=== PATIENT | male | born 1945 | race Caucasian/White ===

== ENCOUNTER 2018-02-03 21:18 | Observation (INO) | payer MEDICARE ==
[~2018-02-03] VITALS: Ht 188 cm; Wt 124.7 kg
[2018-02-03] MEDS ORDERED: SODIUM CHLORIDE 0.9% 500ML 500 ML IV ONE (21:30)
[2018-02-03] MEDS ORDERED: METOPROLOL TARTRATE INJ 1 MG/ML VIAL IV ONE (21:30)
[2018-02-03 21:53] LABS: BASOPHILS # (AUTO) 0.1 (0.0-0.1); BASOPHILS % 0.7 % (0.0-1.0); EOSINOPHILS # (AUTO) 0.3 (0.0-0.4); EOSINOPHILS % 3.6 % (0.0-6.0); HEMATOCRIT 42.6 % (38.2-49.6); HEMOGLOBIN 14.6 g/dL (14.0-18.0); LYMPHOCYTES % 26.9 % (18.0-39.1); MEAN CORPUSCULAR HEMOGLOBIN 29.7 pg (28-32); MEAN CORPUSCULAR HGB CONC 34.3 g/dL (31-35); MEAN CORPUSCULAR VOLUME 86.8 fL (81-99); MONOCYTES # (AUTO) 0.5 (0.2-0.8); MONOCYTES % 6.9 % (4.4-11.3); NEUTROPHILS # (AUTO) 4.5 (2.1-6.9); NEUTROPHILS % 61.5 % (38.7-80.0); PLATELET COUNT 182 x10e3/uL (140-360); RED BLOOD COUNT 4.91 x10e6/uL (4.3-5.7); RED CELL DISTRIBUTION WIDTH 14.3 % (11.7-14.4)
[2018-02-03 21:57] LABS: INR 0.93; PROTHROMBIN TIME 11.7 seconds (11.9-14.5)
[2018-02-03 21:58] LABS: PARTIAL THROMBOPLASTIN TIME 29.2 seconds (23.8-35.5)
[2018-02-03 22:05] LABS: ALBUMIN 4.3 g/dL (3.5-5.0); ALBUMIN/GLOBULIN RATIO 1.3 (0.8-2.0); ANION GAP 18.3 mmol/L (8-16); CALCIUM 10.3 mg/dL (8.4-10.2); CREATININE, SERUM 1.36 mg/dL (0.72-1.25); POTASSIUM 4.3 mmol/L (3.5-5.1)
[2018-02-03 22:11] LABS: CREATINE KINASE MB 3.3 ng/mL (0-5.0)
[2018-02-03] MEDS ORDERED: METFORMIN HCL1000 MG PO (22:49)
[2018-02-03] MEDS ORDERED: GLIMEPIRIDE2 MG PO (22:49)
[2018-02-03] MEDS ORDERED: NOVOLIN R100 UNIT/1 SC ×2 (22:50)
[2018-02-03] MEDS ORDERED: ATENOLOL50 MG PO (22:51)
[2018-02-03] MEDS ORDERED: LOSARTAN POTAS100 MG PO (22:51)
[2018-02-03] MEDS ORDERED: DOXAZOSIN MESYLA2 MG PO (22:52)
[2018-02-03] MEDS ORDERED: FLUOXETINE HCL20 M1 PO (22:52)
[2018-02-03] MEDS ORDERED: ALLOPURINOL300 MG PO (22:52)
[2018-02-03] MEDS ORDERED: SIMVASTATIN40 MG PO (22:52)
--- NOTE | 2018-02-03 22:52 | Diagnostic Imaging Report ---
EXAMINATION: CHEST SINGLE (PORTABLE) INDICATION: Chest pain. COMPARISON: None FINDINGS: TUBES and LINES: None. LUNGS: Lungs are well inflated. Lungs are clear. There is no evidence of pneumonia or pulmonary edema. PLEURA: No pleural effusion or pneumothorax. HEART AND MEDIASTINUM: The cardiomediastinal silhouette is unremarkable. BONES AND SOFT TISSUES: No acute osseous lesion. Soft tissues are unremarkable. UPPER ABDOMEN: No free air under the diaphragm. IMPRESSION: No acute thoracic abnormality. Signed by: Dr. Thomas Deleon M.D. on 02/03/2018 10:49 PM
[2018-02-03] MEDS ORDERED: ONDANSETRON HCL INJ 2 MG/ML VIAL IV PRN (23:15)
[2018-02-03] MEDS ORDERED: DEXTROSE 50% SYRINGE 50 ML IV PRN (23:15)
[2018-02-03] MEDS ORDERED: FAMOTIDINE 20 MG/2 ML VIAL IV SCH (23:15)
[2018-02-03] MEDS ORDERED: MORPHINE SULFATE 2 MG/ML SYR IV PRN (23:15)
[2018-02-03] MEDS ORDERED: SODIUM CHLORIDE FLUSH 10 ML SYR INJ PRN (23:15)
[2018-02-04] VITALS (17 sets, daily range): BP systolic 130–153; BP diastolic 60–93
[2018-02-04 05:53] LABS: CHOL/HDL RATIO 3.8 (3.9-4.7)
[2018-02-04 06:03] LABS: CREATINE KINASE MB 5.4 ng/mL (0-5.0)
[2018-02-04] MEDS ORDERED: FEXOFENADINE H180 MG PO (06:29)
[2018-02-04] MEDS ORDERED: NORCO 5-325 TA1 EACH PO (06:29)
[2018-02-04] MEDS ORDERED: ASPIR 8181 MG PO (06:29)
[2018-02-04] MEDS ORDERED: FUROSEMIDE40 MG PO (06:29)
[2018-02-04] MEDS ORDERED: RANITIDINE HCL150 MG PO (06:29)
[2018-02-04] MEDS ORDERED: ACULAR5 ML OD (06:29)
[2018-02-04] MEDS ORDERED: FUROSEMIDE 40 MG TAB PO SCH ×2 (06:30→18:51)
[2018-02-04] MEDS ORDERED: HYDROCODONE/APAP 5MG-325MG TAB PO PRN ×2 (06:30→19:00)
[2018-02-04] MEDS: INSULIN REGULAR, HUMAN 100 UNIT/1 ML 3ML VIAL SQ SCH ×4 (07:16→21:00)
[2018-02-04] MEDS ORDERED: SODIUM CHLORIDE 0.9% 1000ML 1,000 ML IV SCH ×3 (08:52→19:00)
[2018-02-04] MEDS ORDERED: ATENOLOL 50 MG TAB PO SCH (09:00)
[2018-02-04] MEDS ORDERED: FAMOTIDINE 20 MG TAB PO SCH (09:00)
[2018-02-04] MEDS ORDERED: ALLOPURINOL 300 MG TAB PO SCH (09:00)
[2018-02-04] MEDS ORDERED: KETOROLAC TROMETHAMINE 0.5% OP SOLN 3 ML BTL OD SCH (09:00)
[2018-02-04] MEDS ORDERED: NON-FORMULARY MEDICATION (Ranitidine Hcl 150 MG) PO SCH (09:00)
[2018-02-04] MEDS ORDERED: ASPIRIN 81 MG CHEW TAB PO SCH (09:00)
[2018-02-04] MEDS ORDERED: CLOPIDOGREL BISULFATE 75 MG TAB PO ONE (09:00)
[2018-02-04] MEDS ORDERED: LOSARTAN POTASSIUM 100 MG TAB PO SCH (09:00)
[2018-02-04] MEDS ORDERED: ASPIRIN 81 MG ENTERIC COATED PO SCH (09:00)
[2018-02-04] MEDS ORDERED: FLUOXETINE HCL 20 MG CAP PO SCH (09:00)
[2018-02-04] MEDS ORDERED: ASPIRIN 325 MG TAB PO ONE (09:00)
[2018-02-04] MEDS: LORATADINE 10 MG TAB PO SCH (09:02)
--- NOTE | 2018-02-04 09:57 | Consultation ---
DATE OF CONSULTATION: February 04, 2018 CARDIOLOGY CONSULTATION REASON FOR CONSULTATION: Chest pain. HISTORY OF PRESENT ILLNESS: Mr. Brock is a 72-year-old gentleman with past medical history of hypertension, type-2 diabetes diagnosed 15 years ago, aortic stenosis under observation, BPH as well as gout, who also appears to have symptoms of diastolic heart failure. He presented to this institution with an episode of severe substernal pressure, dull ache, radiating across his chest associated with nausea, diaphoresis, and difficulty breathing. The patient had also near syncope with the episode, prompting him to come to the emergency room. Yesterday, he was in his usual state of health. He worked in the yard earlier that day. However, in the nighttime, he developed that pain as noted above. Overall, he reports taking extra 50 mg of atenolol and coming to the emergency room for further care and management. He denies ever having any symptoms like this before. He utilizes 2 pillows. No PND. Denies any syncope. He reports he has had stress tests in the past, but the last one was well over a year ago. His last echocardiogram was also well over a year ago. In the emergency room, serial cardiac biomarkers were checked. Troponin went from a baseline of 0.014 to 0.331. EKG reveals normal sinus rhythm and slight ST depressions diffusely. Cardiology consultation is obtained. PAST MEDICAL HISTORY 1. Hypertension, essential. 2. Type-2 diabetes diagnosed 15 years ago. 3. Hypercholesterolemia. 4. Aortic stenosis under observation. 5. BPH. 6. Gout. PAST SURGICAL HISTORY: Denies. FAMILY HISTORY: Mother at age of 79 with heart disease. Father at the age of 80 with heart disease. 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 Denies any alcohol or illicit drug use. Denies any smoking history. ALLERGIES: NO KNOWN DRUG ALLERGIES. HOME MEDICATIONS: Include: 1. Atenolol 50 mg b.i.d. 2. Losartan 100 mg daily. 3. Doxazosin 2 mg nightly. 4. Prozac 20 mg daily. 5. Allopurinol 300 mg daily. 6. Zocor 40 mg daily. 7. Metformin 1,000 mg b.i.d. 8. Glimepiride 4 mg b.i.d. 9. Novolin 20 units subcutaneous q.a.m. and 60 units subcutaneous nightly. REVIEW OF SYSTEMS GENERAL: Positive for fatigue and malaise. Denies any fever or chills. HEENT: Has occasional headache. No visual complaints, sore throat or stuffy nose. RESPIRATORY: Positive for shortness of breath with the chest pain episode. No cough. CARDIOVASCULAR: As per HPI. GI: Denies any abdominal pain. Positive for nausea with the chest pain. No vomiting, bright red blood per rectum, melena or hematemesis. : Does have urinary frequency and BPH-type symptoms. MUSCULOSKELETAL: Has some chronic lower back pains and knee pains from time to time. He does have lower extremity swelling. HEM: No easy bruising or bleeding. ID: No known infectious history. NEUROLOGIC: Denies any focal weakness, numbness, tingling, seizures, headache, history of TIA or stroke. OTHER: The remainder of the review of systems negative unless otherwise mentioned. PHYSICAL EXAMINATION VITALS: Height 74 inches, weight 275 pounds, BMI 35.3. Temperature 98.5, pulse 64, respiratory rate 16, blood pressure 142/61, O2 sat 97% on 2 L nasal cannula. GENERAL: This is a well-nourished, obese gentleman who is currently in no apparent distress. HEENT: Pupils are equal, round and reactive to light. The extraocular movements are intact. Oropharynx is clear. NECK: No elevation of jugular venous pulsation. Faint bilateral carotid bruits. CARDIOVASCULAR: Regular rate and rhythm. Normal S1 and S2 with ectopy. Harsh 3/6 to 4/6 systolic ejection murmur at the right upper sternal border. LUNGS: Diminished bibasilar breath sounds with some slight crackles. ABDOMEN: Soft. Nontender. Obese. Normoactive bowel sounds. BACK: No costovertebral angle tenderness. EXTREMITIES: Warm with 2+ bilateral radial pulses with normal Jovani and Barbeau tests. There are 1 to 2+ bilateral femoral pulses and 1+ pedal pulse with 1+ edema to the mid shins. NEUROLOGIC: Cranial nerves II through XII are intact. Strength is 5/5 and grossly nonfocal. PSYCH: Normal fluent speech, appropriate affect, no anxiety or delusions. LABS: White count 7.2, hemoglobin 14.6, hematocrit 42.6, platelets 182. Sodium 141, potassium 4.3, chloride 101, bicarb 26, BUN 22, creatinine 1.36, glucose 231. INR is 0.93. AST 33, ALT 56, alk phos 71, total bili 0.4, total protein 7.5, albumin 4.3. BNP is 155. Troponin went from 0.014 to 0.331, which is positive. Cholesterol shows total cholesterol 119, LDL 65, HDL 31. Chest x-ray is reported no acute abnormality. EKG reveals sinus rhythm, 1st-degree AV block with ectopy with PACs and nonspecific borderline ST depressions diffusely. DIAGNOSES 1. Eru-PC-gcltdcgnr myocardial infarction with positive cardiac biomarkers with typical [place] [employer] IV angina symptoms. 2. Aortic stenosis approaching severe by clinical exam. 3. Bilateral carotid bruits. 4. Hypertension. 5. Type-2 diabetes with complications. 6. Hypercholesterolemia. PLAN/RECOMMENDATIONS 1. Go ahead and give him 325 aspirin and Plavix 600 mg load. 2. In light of unstable symptoms, we are arranging urgent cardiac catheterization to figure out what his culprit artery will be. 3. Recommend to continue beta phong, statin, etc. 4. Gentle IV fluid hydration to protect renal function from the contrast load. 5. Further plan/recommendations to follow urgent cardiac catheterization. Job#: [id number] LLOYD CASTRO
[2018-02-04] MEDS ORDERED: HEPARIN SOD (PORCINE) 1000 UNIT/ML 30ML ONE (10:12)
[2018-02-04] MEDS ORDERED: HEPARIN SOD/SOD CHLORIDE 2,000 ML ONE (10:13)
[2018-02-04] MEDS ORDERED: NITROGLYCERIN/D5W 200 MCG/ML 250 ML ONE (10:13)
[2018-02-04] MEDS ORDERED: IOPAMIDOL 370 MG/ML 200 ML INFUS..BTL INJ ONE (10:13)
[2018-02-04] MEDS ORDERED: LIDOCAINE HCL 2% LOCAL 20 ML VIAL ONE (10:13)
[2018-02-04] MEDS ORDERED: VERAPAMIL HCL 2.5 MG/ML 2 ML VIAL ONE (10:13)
[2018-02-04] MEDS ORDERED: MIDAZOLAM HCL 2 MG/2 ML VIAL ONE ×2 (10:13→11:09)
[2018-02-04] MEDS ORDERED: SODIUM CHLORIDE 0.9% 1000ML 1,000 ML ONE (10:13)
[2018-02-04] MEDS ORDERED: FENTANYL CITRATE/PF 100MCG/2 ML INJ ONE (10:14)
[2018-02-04] MEDS ORDERED: BIVALIRUDIN 250 MG/VIAL IV ONE (11:06)
[2018-02-04] MEDS ORDERED: SODIUM CHLORIDE 0.9% 50ML 50 ML ONE (11:06)
[2018-02-04] MEDS ORDERED: CLOPIDOGREL BISULFATE 75 MG TAB ONE (11:09)
[2018-02-04] MEDS ORDERED: ASPIRIN 325 MG TAB ONE (11:11)
[2018-02-04] MEDS ORDERED: ONDANSETRON HCL INJ 2 MG/ML VIAL IV PRN ×2 (12:00→19:00)
--- NOTE | 2018-02-04 15:16 | Operative Report ---
DATE OF PROCEDURE: February 04, 2018 PROCEDURES PERFORMED 1. Left heart cardiac catheterization and coronary angiography. 2. Percutaneous coronary intervention with drug-eluting stent placement to the mid left anterior descending. INDICATIONS FOR PROCEDURE: This is a 72-year-old gentleman with past medical history of hypertension, type 2 diabetes for about 15 years, hypercholesterolemia, aortic stenosis under surveillance, who presents to this institution with severe substernal chest pressure tightness sensation and elevated troponin going to the 0.3 range most consistent with a diagnosis of [id number] myocardial infarction. DESCRIPTION OF PROCEDURE: After risks, benefits, pros and cons of the procedure were explained, the patient agreed to proceed. The patient was brought to the cardiac catheterization laboratory where the right wrist was prepped and draped in the usual sterile fashion. Preprocedure Jovani's and Barbeau test were noted to be normal indicating complete pulmonary arch. One percent lidocaine solution was used to numb the right wrist region and access to the right radial artery was obtained. The long 5-Syrian Terumo Glidesheath was placed. Intra-arterial verapamil 2.5 mg and nitroglycerin 300 mcg were given through the side arm of the sheath, and 5000 units of intravenous heparin was given for systemic anticoagulation. Selective coronary angiography of the [place]-apache left and right coronaries were performed with Boone 4.0 diagnostic 5-Syrian catheter. Left ventriculography was not done on account of known aortic stenosis. At that point in time, we noted a severe mid to distal LAD lesion at 85% stenosed and the distal LAD was noted to be very small and not really a graftable vessel. We decided to proceed with intervention. The 5-Syrian long Terumo Glidesheath was exchanged for a 6-Syrian Terumo slender sheath. IV Angiomax bolus was given for systemic anticoagulation and patient was loaded with 325 mg aspirin as well as 600 mg of Plavix. We took a 6-Syrian XB3.5 guiding catheter with side holes and selected the left main coronary ostia. Utilizing a 180 cm [employer] Flex guidewire, we were able to successfully cross the lesion and the wire was placed preferentially to the distal diagonal branch for body support. We initially went with a Synergy 2.5 x 16 mm drug-eluting stent; however this was unable to cross the lesion. At that point in time, we took a 6-Syrian GuideLiner guide extension catheter and we took a Resolute Eyal 2.25 x 15 mm drug-eluting stent and we are able to advance into the lesion. The stent was deployed up to 12 atmospheres of pressure for 30 seconds. Final angiography revealed zero percent residual stenosis and KAREN-III flow and no complications. At that point in time, we decided to conclude the case. The GuideLiner guide extension wire was removed and final angiogram revealed no guide issues and no complications. The guiding catheter was removed with a standard 0.035 J wire and a large Terumo TR band was successfully deployed utilizing patent hemostasis technique and a total of 15 mL of air was placed. COMPLICATIONS: None. ESTIMATED BLOOD LOSS: Minimal. FINDINGS 1. Left main is angiographically normal and gives rise to an LAD and circumflex branch. 2. The LAD is tortuous, has diffuse mild disease; however in the mid to distal LAD just before last sizeable diagonal branch, there is an 80% focal stenosis. The distal most diagonal branch is moderate in caliber and has a 40% proximal stenosis and the distal most apical LAD after that point of time is very small and no more than 1.5 mm vessel and not really suitable for grafting. 3. The left circumflex artery has 40% proximal stenosis gives rise to an anterolateral marginal branch. There is mild diffuse disease and terminates into a moderate caliber midmarginal branch with mild diffuse disease. 4. RCA is dominant. It gives rise to a large right PDA and moderate caliber bifurcating right PLV branch. There is diffuse 60% stenosis in the distal right coronary artery. INTERVENTION SUMMARY: Successful treatment of the mid to distal LAD stenosis which preprocedure was 80% and KAREN 3 flow with implantation of a Resolute [place] 2.25 x 15 mm drug-eluting stent deployed up to 12 atmospheres of pressure resulting in zero percent residual stenosis KAREN 3 flow, unknown complications. PLAN AND RECOMMENDATIONS 1. Aspirin and Plavix therapy. 2. Statin therapy. 3. Aggressive risk factor modification with medical therapy. 4. Removal of TR band in approximately one hour worth of time. 5. Further plan and recommendations to follow. Job#: [id number] KEN
[2018-02-04] MEDS ORDERED: SODIUM CHLORIDE FLUSH 10 ML SYR INJ PRN (19:00)
[2018-02-04] MEDS ORDERED: DEXTROSE 50% SYRINGE 50 ML IV PRN (19:00)
[2018-02-04] MEDS ORDERED: MORPHINE SULFATE 2 MG/ML SYR IV PRN (19:00)
[2018-02-04] MEDS: SODIUM CHLORIDE 0.9% 1000ML 1,000 ML IV SCH (19:30)
--- NOTE | 2018-02-04 19:48 | History and Physical ---
PRIMARY CARE PHYSICIAN: Dr. Manny Duenas with [facility]. CHIEF COMPLAINT: Chest pain. HISTORY OF PRESENT ILLNESS: This is a 72-year-old gentleman with what sounds like aortic stenosis, hypertension and diabetes. He came in with severe substernal chest pressure associated with diaphoresis and shortness of breath. The patient also had near syncopal episode. The patient was checking his blood pressure at home and was tachycardiac, therefore, he took an extra 50 mg of Atenolol. The patient also noticed his heart was skipping a beat. The patient had a stress test before, but it was well over a year ago. Subsequently, his second troponin went up to 0.3, which was abnormal and he was urgently taken to the carpenter/labor by Dr. Chan. PAST MEDICAL HISTORY: 1. Hypertension. 2. Type 2 diabetes. 3. Dyslipidemia. 4. Aortic stenosis. 5. Benign prostatic hypertrophy. 6. Gout. PAST SURGICAL HISTORY: None. FAMILY HISTORY: Significant for heart disease. SOCIAL HISTORY: No smoking history. ALLERGIES: NONE. MEDICATIONS: Please see medication reconciliation form. REVIEW OF SYSTEMS: Ten systems were reviewed and negative other than what is stated in HPI. PHYSICAL EXAMINATION VITAL SIGNS: Temperature 98.5, pulse 61, blood pressure 130/60, respiratory rate 16. GENERAL: In no acute distress. HEENT: Anicteric. Oropharynx is clear. NECK: Supple. LUNGS: Clear. HEART: Regular rate and rhythm. Normal S1 and S2. systolic murmur. ABDOMEN: Soft, nondistended, nontender. Normoactive bowel sounds. : Deferred. MUSCULOSKELETAL: Painless range of motion. NEUROLOGIC: Alert and oriented x3. Cranial nerves II-XII grossly intact. SKIN: No rash. PSYCHIATRIC: No hallucinations. LABORATORY DATA: White count 7, hemoglobin 14, platelet count 182,000. PT and PTT normal. Sodium 141, potassium 4.3, chloride 101, bicarb 26, BUN 22, creatinine 1.36, glucose 231. Chest x-ray did not show any acute disease. ASSESSMENT AND PLAN 1. Non-ST elevation myocardial infarction, status post mid to distal drug eluting stent placement. Will continue aspirin, Plavix, Atenolol and Zocor. Will monitor overnight. If stable, the patient should be able to go home tomorrow. 2. Diabetes. Will start him on sliding scale. 3. Possible stage 3 chronic kidney disease due to diabetes. Will gently hydrate him. Will repeat another creatinine in the morning. 4. GI, DVT prophylaxis. No chemical due to recent procedure. Job#: [id number] GH cc:MANNY DUENAS MD
[2018-02-04] MEDS ORDERED: DOXAZOSIN MESYLATE 2 MG TAB PO SCH ×2 (21:00)
[2018-02-04] MEDS: KETOROLAC TROMETHAMINE 0.5% OP SOLN 3 ML BTL OD SCH (21:00)
[2018-02-04] MEDS ORDERED: SIMVASTATIN 40 MG TAB PO SCH ×2 (21:00)
[2018-02-04 21:08] LABS: CREATINE KINASE MB 3.3 ng/mL (0-5.0)
[2018-02-05] VITALS: BP 177/84
[2018-02-05] MEDS: DIPHENHYDRAMINE HCL 25 MG CAP PO PRN ×2 (02:03→12:00)
[2018-02-05 04:00] VITALS: BP 158/68
[2018-02-05 05:18] LABS: BASOPHILS % 0.7 % (0.0-1.0); EOSINOPHILS # (AUTO) 0.3 (0.0-0.4); EOSINOPHILS % 4.9 % (0.0-6.0); HEMATOCRIT 37.1 % (38.2-49.6); HEMOGLOBIN 12.6 g/dL (14.0-18.0); LYMPHOCYTES # (AUTO) 1.6 (1.0-3.2); LYMPHOCYTES % 26.5 % (18.0-39.1); MEAN CORPUSCULAR HEMOGLOBIN 29.4 pg (28-32); MEAN CORPUSCULAR VOLUME 86.5 fL (81-99); MONOCYTES # (AUTO) 0.4 (0.2-0.8); MONOCYTES % 6.9 % (4.4-11.3); NEUTROPHILS # (AUTO) 3.7 (2.1-6.9); NEUTROPHILS % 60.7 % (38.7-80.0); PLATELET COUNT 155 x10e3/uL (140-360); RED BLOOD COUNT 4.29 x10e6/uL (4.3-5.7); RED CELL DISTRIBUTION WIDTH 14.4 % (11.7-14.4)
[2018-02-05 05:42] LABS: ALANINE AMINOTRANSFERASE 45 IU/L (0-55); ALBUMIN/GLOBULIN RATIO 1.5 (0.8-2.0); ALKALINE PHOSPHATASE 44 IU/L (40-150); ANION GAP 11.9 mmol/L (8-16); BLOOD UREA NITROGEN 18 mg/dL (7-26); BUN/CREATININE RATIO 17 (6-25); CALCIUM 8.8 mg/dL (8.4-10.2); CARBON DIOXIDE 25 mmol/L (22-29); CHLORIDE 106 mmol/L (98-107); CREATININE, SERUM 1.03 mg/dL (0.72-1.25); EST GLOMERULAR FILTRATION RATE > 60 ML/MIN (60-); GLUCOSE 127 mg/dL (74-118); POTASSIUM 3.9 mmol/L (3.5-5.1); SODIUM 139 mmol/L (136-145)
[2018-02-05 05:43] LABS: ALBUMIN 3.3 g/dL (3.5-5.0)
[2018-02-05] MEDS: INSULIN REGULAR, HUMAN 100 UNIT/1 ML 3ML VIAL SQ SCH (07:30)
[2018-02-05 08:00] VITALS: BP 149/80
[2018-02-05] MEDS: LORATADINE 10 MG TAB PO SCH (08:54)
[2018-02-05] MEDS: KETOROLAC TROMETHAMINE 0.5% OP SOLN 3 ML BTL OD SCH (08:54)
[2018-02-05] MEDS: SODIUM CHLORIDE 0.9% 1000ML 1,000 ML IV SCH (08:54)
[2018-02-05] MEDS ORDERED: CLOPIDOGREL BISULFATE 75 MG TAB PO SCH (09:00)
[2018-02-05] MEDS ORDERED: FLUOXETINE HCL 20 MG CAP PO SCH (09:00)
[2018-02-05] MEDS ORDERED: FAMOTIDINE 20 MG TAB PO SCH (09:00)
[2018-02-05] MEDS ORDERED: ATENOLOL 50 MG TAB PO SCH (09:00)
[2018-02-05] MEDS ORDERED: LOSARTAN POTASSIUM 100 MG TAB PO SCH (09:00)
[2018-02-05] MEDS ORDERED: ALLOPURINOL 300 MG TAB PO SCH (09:00)
[2018-02-05] MEDS ORDERED: ASPIRIN 81 MG ENTERIC COATED PO SCH (09:00)
[2018-02-05] MEDS ORDERED: ASPIRIN 325 MG TAB PO SCH (09:00)
--- NOTE | 2018-02-05 11:09 | Discharge Summary ---
PRIMARY CARE PHYSICIAN: Dr. Manny Duenas. FINAL DIAGNOSIS: Non-ST elevation myocardial infarction. SECONDARY DIAGNOSES 1. Aortic stenosis. 2. Hypertension. 3. Diabetes. CONSULTANTS: Dr. Chan, cardiology. PROCEDURE/STUDIES PERFORMED: 1. Echocardiogram, which showed EF of 35%. 2. Drug eluting stent placement of the mid to distal LAD. HISTORY: Per H\T\P. HOSPITAL COURSE: The patient was admitted. His second troponin was 0.3. Therefore, the patient was urgently taken to the filling station laborer where an 80% lesion was found. A drug eluting stent was placed. The patient will be going home on Plavix in addition to his aspirin. Of note, his echocardiogram did show an EF of 35%. The patient has an appointment already in a couple of days with his Eun heading saw operator at a routine followup for his aortic stenosis. The patient was seen and examined today. It took 32 minutes total to discharge this patient. CONDITION ON DISCHARGE: Stable. DISCHARGE MEDICATIONS: Please see medication reconciliation form. VICTOR HUGO JOAQUIN M.D. Job#: [id number] GH cc:MANNY DUENAS MD
[2018-02-05] MEDS ORDERED: PLAVIX75 MG PO (11:37)
== END 2018-02-05 12:18 | disposition home or self-care (01) ==
LOC: ER 21:18 → CATH LAB 22:00 → ERHOLD 23:06 → UNDOADMOB 23:06 → IMCU 23:08 → ERHOLD 02-04 01:43 → CATH LAB 02-04 10:29 → IMCU 02-04 18:02 → UNDOADMOB 02-04 18:02 → UNDODISOB 02-05 12:18
PROVIDERS: ADMIT Internal Medicine Cardiovascular Disease; ATTEND Internal Medicine Cardiovascular Disease
DX: I21.4 Non-ST elevation (NSTEMI) myocardial infarction (principal); I25.110 Atherosclerotic heart disease of native coronary artery with unstable angina pectoris; I34.0 Nonrheumatic mitral (valve) insufficiency; I35.0 Nonrheumatic aortic (valve) stenosis; I07.1 Rheumatic tricuspid insufficiency; I49.1 Atrial premature depolarization; I10 Essential (primary) hypertension; E78.5 Hyperlipidemia, unspecified; N40.0 Benign prostatic hyperplasia without lower urinary tract symptoms; E11.8 Type 2 diabetes mellitus with unspecified complications; M10.9 Gout, unspecified; E78.00 Pure hypercholesterolemia, unspecified; E66.9 Obesity, unspecified; Z79.4 Long term (current) use of insulin; Z79.02 Long term (current) use of antithrombotics/antiplatelets; Z68.38 Body mass index [BMI] 38.0-38.9, adult; Z82.49 Family history of ischemic heart disease and other diseases of the circulatory system
CPT/HCPCS: 93454; C9600; 36415; 71045; 80053; 80061; 82550; 82553; 82948; 83735; 83880; 84484; 85025; 85610; 85730; 92928; 93005; 93306; 93880; 94660; 96360; 96361; 96372; 97139; 99284; C1874; G0378; J0583; J1644; J2001; J2250; J7030; J7040; Q9967

== ENCOUNTER 2018-02-08 02:06 | Observation (INO) | payer MEDICARE ==
[~2018-02-08] VITALS: Ht 188 cm; Wt 124.7 kg
[~2018-02-08 02:06] MED LIST: ACULAR5 ML OD; ALLOPURINOL300 MG PO; ASPIR 8181 MG PO; ATENOLOL50 MG PO; DOXAZOSIN MESYLA2 MG PO; FEXOFENADINE H180 MG PO; FLUOXETINE HCL20 M1 PO; FUROSEMIDE40 MG PO; GLIMEPIRIDE2 MG PO; LOSARTAN POTAS100 MG PO; METFORMIN HCL1000 MG PO; NORCO 5-325 TA1 EACH PO; NOVOLIN R100 UNIT/1 SC; PLAVIX75 MG PO; RANITIDINE HCL150 MG PO; SIMVASTATIN40 MG PO
[2018-02-08] MEDS ORDERED: HYDRALAZINE HCL 20 MG/ML VIAL IV STA (02:20)
[2018-02-08 02:50] LABS: BASOPHILS % 0.6 % (0.0-1.0); EOSINOPHILS # (AUTO) 0.5 (0.0-0.4); EOSINOPHILS % 6.7 % (0.0-6.0); HEMATOCRIT 39.4 % (38.2-49.6); HEMOGLOBIN 13.6 g/dL (14.0-18.0); LYMPHOCYTES # (AUTO) 1.5 (1.0-3.2); LYMPHOCYTES % 22.5 % (18.0-39.1); MEAN CORPUSCULAR HEMOGLOBIN 29.5 pg (28-32); MEAN CORPUSCULAR HGB CONC 34.5 g/dL (31-35); MEAN CORPUSCULAR VOLUME 85.5 fL (81-99); MONOCYTES # (AUTO) 0.5 (0.2-0.8); MONOCYTES % 7.2 % (4.4-11.3); NEUTROPHILS # (AUTO) 4.2 (2.1-6.9); NEUTROPHILS % 62.7 % (38.7-80.0); PLATELET COUNT 159 x10e3/uL (140-360); RED BLOOD COUNT 4.61 x10e6/uL (4.3-5.7); RED CELL DISTRIBUTION WIDTH 14.2 % (11.7-14.4)
[2018-02-08 03:12] LABS: ALBUMIN 3.9 g/dL (3.5-5.0); ALBUMIN/GLOBULIN RATIO 1.4 (0.8-2.0); ANION GAP 15.1 mmol/L (8-16); CALCIUM 9.6 mg/dL (8.4-10.2); CREATININE, SERUM 1.43 mg/dL (0.72-1.25); MAGNESIUM 1.9 MG/DL (1.3-2.1); POTASSIUM 4.1 mmol/L (3.5-5.1)
[2018-02-08 03:13] LABS: INR 1.04; PARTIAL THROMBOPLASTIN TIME 27.9 seconds (23.8-35.5); PROTHROMBIN TIME 12.8 seconds (11.9-14.5)
[2018-02-08 03:33] LABS: CREATINE KINASE MB 2.2 ng/mL (0-5.0)
--- NOTE | 2018-02-08 03:36 | Diagnostic Imaging Report ---
CHEST SINGLE (PORTABLE), 02/08/2018 2:20 AM Technique: CHEST SINGLE (PORTABLE) Comparison: 02/03/2018 Clinical history: Palpitations Findings: Limited by portable technique. Stable cardiomediastinal silhouette. No consolidation or edema. No significant effusion. No pneumothorax. Impression: 1. Lines/Tubes: None 2. No acute abnormality. Signed by: Dr Tanya Smallwood MD on 02/08/2018 3:32 AM
[2018-02-08] MEDS ORDERED: DEXTROSE 50% SYRINGE 50 ML IV PRN (04:30)
[2018-02-08] MEDS ORDERED: HYDRALAZINE HCL 20 MG/ML VIAL IV PRN (04:30)
[2018-02-08 04:47] LABS: CLARITY,URINE CLEAR (CLEAR); COLOR,URINE YELLOW (YELLOW)
[2018-02-08 04:48] LABS: BILIRUBIN,URINE NEGATIVE (NEGATIVE); KETONES,URINE NEGATIVE (NEGATIVE); LEUKOCYTE ESTERASE ,URINE NEGATIVE (NEGATIVE); NITRITE,URINE NEGATIVE (NEGATIVE); PROTEIN,URINE DIPSTICK 2+ (NEGATIVE); URINE UROBILINOGEN 0.2 mg/dL (0.2 - 1)
[2018-02-08 04:57] LABS: BACTERIA,URINE RARE /HPF; EPITHELIAL CELLS,URINE RARE /LPF; RBC,URINE 0-5 /HPF (0-5)
[2018-02-08] MEDS ORDERED: ENALAPRILAT IV INJ 1.25 MG/ML VIAL IV STA (05:04)
[2018-02-08 06:45] VITALS: BP 174/85
[2018-02-08 07:30] VITALS: BP 169/77
[2018-02-08] MEDS ORDERED: INSULIN REGULAR, HUMAN 100 UNIT/1 ML 3ML VIAL SQ SCH (07:30)
[2018-02-08] MEDS ORDERED: CLOPIDOGREL BISULFATE 75 MG TAB PO SCH (09:00)
[2018-02-08] MEDS ORDERED: ASPIRIN 81 MG ENTERIC COATED PO SCH (09:00)
[2018-02-08] MEDS ORDERED: CLONIDINE HCL 0.1 MG TAB PO PRN (10:45)
[2018-02-08] MEDS ORDERED: DOXAZOSIN MESYLATE 2 MG TAB PO SCH (11:00)
[2018-02-08] MEDS ORDERED: LOSARTAN POTASSIUM 100 MG TAB PO SCH (11:00)
[2018-02-08] MEDS ORDERED: ATENOLOL 50 MG TAB PO SCH (11:00)
[2018-02-08] MEDS ORDERED: HYDROCHLOROTHIAZIDE 25 MG TAB PO SCH (11:00)
[2018-02-08 11:36] VITALS: BP 190/90
[2018-02-08 11:53] LABS: CREATINE KINASE MB 2.3 ng/mL (0-5.0)
--- NOTE | 2018-02-08 12:54 | Consultation ---
DATE OF CONSULTATION: REASON FOR CONSULTATION: Hypertension. HPI: This is a 72-year-old male with a recent non-STEMI on February 04 with PCI to LAD with a Resolute stent, drug-eluting; hypertension; diabetes; hypercholesterolemia; severe aortic stenosis; BPH; gout and obesity. Patient as mentioned had a recent non-STEMI on February 04, had a PCI to LAD with good results, progressed nicely, went home; however, patient reports that for the past couple of days, he has been not watching his salt intake and yesterday, he noticed his blood pressure being high. In fact, last night, he reports blood pressure being 220/105. Patient does report taking all his heart medications, not skipping doses; however, he does state that he has been increasing his salt intake. Therefore, patient came to the ER because of blood pressure being elevated and also did notice that he felt his heart skip every so often. Tele was reviewed and he does have intermittent PACs. Patient denies any chest pains, any lightheadedness, any dizziness, any syncope. Patient actually in fact states that he was going to go see his doctor, Dr. Jay, his radial arm saw operator, this , regarding his severe aortic stenosis. Patient was seen in room, in no acute distress. He is adamant that he wants to leave and does not want to be here and wants to follow up with his primary radial arm saw operator, Dr. Jay. PAST MEDICAL HISTORY 1. CAD, status post PCI to LAD with a Resolute stent, drug-eluting on February 04, 2018. 2. Hypertension. 3. Severe aortic stenosis. 4. Diabetes. 5. Hypercholesterolemia. 6. BPH. 7. Gout. 8. Obesity. PAST SURGICAL HISTORY: Recent PCI on February 04, 2018. FAMILY HISTORY: Mother at the age of 79, apparently with heart disease. Father at age of 80, also with apparently heart disease. SOCIAL HISTORY: He is . 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 He denies any alcohol use, any tobacco use, or any drug use. ALLERGIES: NO KNOWN ALLERGIES. HOME MEDICATIONS: Include; 1. Allopurinol 300 mg once a day. 2. Aspirin 85 mg once a day. 3. Plavix 75 mg once a day. 4. Atenolol 50 mg twice a day. 5. Cardura 4 mg daily. 6. Lasix 40 mg as needed. 7. Metformin 1000 mg b.i.d. 8. Losartan 100 mg daily. 9. Simvastatin 40 mg daily. 10. Glimepiride 4 mg daily. 11. Insulin sliding scale. REVIEW OF SYSTEMS GENERAL: Denies any fatigue, malaise, any weakness, any fevers or chills. HEENT: Denies any headaches, any dizziness, lightheadedness, any sore throat, stuffiness, stuffy nose, epistaxis, any vision changes. RESPIRATORY: Denies any shortness of breath, any coughing, any hemoptysis. CARDIOVASCULAR: Denies any chest pains. Positive for high blood pressure. Denies any dizziness, lightheadedness, or syncope. GI: Denies any abdominal pain. Good appetite. No nausea or vomiting. No melena or hematemesis. : Denies any hematuria, any frequency, urgency, nocturia. MUSCULOSKELETAL: Positive for generalized joint pains, knee pains, and also intermittent lower extremity edema. HEMATOLOGY: No bruising, bleeding. NEUROLOGIC: Denies any muscle weakness, numbness, tingling, seizures, headaches, fainting, blackouts. PHYSICAL EXAMINATION VITAL SIGNS: On admission, blood pressure 202/111, respiratory rate 16, pulse 76, temperature 98.5, pulse ox 100% on room air. Currently, blood pressure is 169/77, heart rate 63, height 74 inches, weight 275 pounds, BMI 35.3. GENERAL: He is a reliable informant, appears stated age, in no acute distress. HEENT: Normocephalic. Pupils equal and reactive. Extraocular motor intact. Oral mucosa pink. Trachea midline. No JVD. Slight carotid bruit on the right. CARDIOVASCULAR: Regular rate and rhythm, plus S1, plus S2. Also plus 3/6 systolic murmur, heard more on the right upper sternal border. LUNGS: Bilateral breath sounds. Clear to auscultation. Good airway entry. ABDOMEN: Soft, nontender. He is obese. No organomegaly noted. EXTREMITIES: Warm, +1 lower extremity edema. VASCULAR: +2 bilateral radial pulses, +1 DP and PT pulses. NEUROLOGICAL: Cranial nerves II through XII seem intact. Strength 5/5 throughout. LABORATORY DATA: White count 6.7, hemoglobin 13, hematocrit 39, platelets 169. Sodium 140, potassium 4.1, BUN 21, creatinine 1.4, troponin 0.06. Chest x-ray, basically no acute abnormalities. EKG, normal sinus rhythm with PACs. ASSESSMENT 1. Hypertension urgency. 1. Palpitations. 2. Coronary artery disease with recent percutaneous coronary intervention to left anterior descending artery on February 04, 2018, 2.25 x 15. 3. Severe aortic stenosis. 4. Diabetes. 5. Hyperlipidemia. 6. Obesity. PLAN 1. Patient presents with hypertension, has not been watching his fluid and sodium intake with reporting a blood pressure of 220s/111 prior to coming to the hospital. Long discussion with patient regarding salt intake and blood pressure management. Patient wishes to go home and is adamant that he does not want to stay here and he wants to follow up with his primary doctor, Dr. Jay, on which he says he already made an appointment for this . We will go ahead and restart patient's home antihypertensives. Of course, continue his aspirin and Plavix which he says he has not been skipping doses. 2. We will also add hydrochlorothiazide to blood pressure regimen. 3. We will also add p.r.n. clonidine for blood pressure greater than 170. 4. Very long discussion with patient regarding treatment options and patient is adamant that he wants to go home and follow up with his primary radial arm saw operator, Dr. Jay. Thank you very much for this consult. We will watch patient while patient is here at the hospital. Dictated by: Hiren Brown NP Job#: [id number] [id number]
[2018-02-08 13:01] VITALS: BP 169/77
[2018-02-08] MEDS ORDERED: SIMVASTATIN 40 MG TAB PO SCH (21:00)
== END 2018-02-08 13:36 | disposition home or self-care (01) ==
LOC: ER 02:06 → ERHOLD 04:48 → MED/SURG3 06:41
PROVIDERS: ADMIT Internal Medicine; ATTEND Internal Medicine
DX: I16.0 Hypertensive urgency (principal); R00.2 Palpitations; I49.1 Atrial premature depolarization; I25.10 Atherosclerotic heart disease of native coronary artery without angina pectoris; Z95.5 Presence of coronary angioplasty implant and graft; I35.0 Nonrheumatic aortic (valve) stenosis; M10.9 Gout, unspecified; I25.2 Old myocardial infarction; Z82.49 Family history of ischemic heart disease and other diseases of the circulatory system; Z83.3 Family history of diabetes mellitus; E78.5 Hyperlipidemia, unspecified; N40.0 Benign prostatic hyperplasia without lower urinary tract symptoms; I11.0 Hypertensive heart disease with heart failure; I50.20 Unspecified systolic (congestive) heart failure; E66.9 Obesity, unspecified; E11.9 Type 2 diabetes mellitus without complications
CPT/HCPCS: 36415; 71045; 80053; 81001; 82550; 82553; 82948; 83735; 83880; 84484; 85025; 85610; 85730; 87086; 93005; 99284; G0378

== ENCOUNTER 2018-10-01 17:48 | Emergency (ER) | payer MEDICARE ==
[~2018-10-01] VITALS: Ht 188 cm; Wt 122.0 kg
--- OUTSIDE RECORDS SUMMARY | 2018-10-01 17:52 | XMS REPORT | Clinical Summary ---
Author Author KIRILL [facility] Organization [facility] Address Unknown Phone Unavailable Care Team Providers Care Ui Engineer Name Role Phone Adilson Carlson MD PCP Allergies No Known Allergies Medications End Date Status Medication Sig Dispensed Refills Start Date Active glimepiride (AMARYL) 4 MG Take 4 mg by 0 tabletIndications: Severe mouth 2 (two) 8 aortic stenosis times daily Takes this med only if needed. Active insulin NPH (HUMULIN N) as directed 0 100 unit/mL 10 units Am 8 injectionIndications: and 60 units Severe aortic stenosis PM. Active atenolol (TENORMIN) 50 MG Take 50 mg by 0 tabletIndications: Severe mouth 2 (two) 8 aortic stenosis times daily. Active COZAAR 100 mg Take 100 mg 0 tabletIndications: Severe by mouth 8 aortic stenosis daily. Active doxazosin (CARDURA) 2 MG Take 2 mg by 0 tabletIndications: Severe mouth aortic stenosis nightly. Active fLUoxetine (PROZAC) 20 MG Take 20 mg by 0 capsuleIndications: mouth 2 (two) Severe aortic stenosis times daily. Active allopurinol (ZYLOPRIM) Take 300 mg 0 300 MG tabletIndications: by mouth 8 Severe aortic stenosis daily. Active simvastatin (ZOCOR) 40 MG Take 40 mg by 0 tabletIndications: Severe mouth daily. 8 aortic stenosis Active furosemide (LASIX) 20 MG Take 20 mg by 0 tabletIndications: Severe mouth daily. 8 aortic stenosis Active aspirin 81 MG EC Take 81 mg by 0 tabletIndications: Severe mouth daily. aortic stenosis Active clopidogrel (PLAVIX) 75 Take 75 mg by 0 mg tabletIndications: mouth daily. 8 Severe aortic stenosis Active cholecalciferol, vitamin Take 1,000 0 D3, 1,000 unit Units by capsuleIndications: mouth daily. Severe aortic stenosis Active fluticasone (FLOVENT Inhale 1 puff 0 DISKUS) 50 mcg/actuation by mouth via diskus inhaler inhaler as needed . Active multivitamin per tablet Take 1 tablet 0 by mouth daily. Active cloNIDine HCl (CATAPRES) Take 0.1 mg 0 0.1 MG tablet by mouth 2 (two) times daily. Active HYDROcodone-acetaminophen Take 1 tablet 0 (NORCO 5-325) 5-325 mg by mouth per tablet every 6 (six) hours as needed for Pain. Active omega-3 fatty acids-fish Take 2 g by 0 oil 340-1,000 mg Cap per mouth daily. capsule Active camphor-menthol (SARNA) Apply 0 0.5-0.5 % lotion topically as needed for Itching. Active GLUCOPHAGE 1,000 mg Take 1 tablet 0 tabletIndications: Severe (1,000 mg 9 aortic stenosis total) by mouth 2 (two) times daily. 10/04/2018 Active chlorhexidine (HIBICLENS) Apply 1 mL 120 mL 0 4 % external liquid topically 3 9 (three) times daily for 14 days To right groin. 07/25/2018 Discontinued GLUCOPHAGE 1,000 mg Take 1,000 mg 0 tabletIndications: Severe by mouth 2 8 aortic stenosis (two) times daily. 09/20/2018 Discontinued GLUCOPHAGE 1,000 mg Take 1 tablet 0 tabletIndications: Severe (1,000 mg 9 aortic stenosis total) by mouth 2 (two) times daily. 09/25/2018 mINOCYCLine Take 1 10 capsule 0 (MINOCIN,DYNACIN) 100 MG capsule (100 9 capsule mg total) by mouth every 12 (twelve) hours for 5 days. 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 09/19/2018 Ardon Chilango 3 09/19/2018 Aortic stenosis 07/25/2018 Abnormal coronary angiogram: 50-60% distal RCA, 30% proximal CX, patent 07/25/2018 [id number] Resolute Mccloud stent mid LAD 07/25/2018 Tachycardia 07/25/2018 Severe aortic stenosis 07/13/2018 Coronary artery disease involving [place] coronary artery of [place] heart 07/13/2018 without angina pectoris DM (diabetes mellitus) type II, controlled, with peripheral vascular 07/13/2018 disorder Patient is Anglican 07/13/2018 S/P angioplasty with stent 07/12/2018 NSTEMI (non-ST elevated myocardial infarction) 06/13/2018 VA, old 02/16/2018 Current use of insulin 11/16/2017 Diabetic cataract 11/16/2017 Dry eyes, bilateral 12/01/2016 Hardening of the aorta (main artery of the heart) 11/09/2016 Combined forms of age-related cataract of both eyes 11/26/2015 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 11/26/2015 2 diabetes mellitus 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 11/05/2015 Myopia of right eye with astigmatism and presbyopia 11/05/2015 Gout 10/28/2015 Recurrent depressive disorder, current episode moderate 10/28/2015 Severe obesity (BMI 35.0-35.9 with comorbidity) 09/19/2014 JAKE (obstructive sleep apnea) 05/27/2014 Benign essential hypertension 08/23/2012 Pure hypercholesterolemia 08/23/2012 Encounters Care Team Description Date Type Specialty 09/20/2018 Travel Dheeraj Davis AA 09/19/2018 Anesthesia Event Chris Ham MD TAVR / JESSICA [facility] - PROC ONLY 09/19/2018 Surgery Chris Ham MD Abnormal coronary angiogram; Severe aortic stenosis 09/19/2018 Hospital Cardiology - Encounter 09/20/2018 09/19/2018 Orders Only General Internal Medicine Chris Ham MD 09/06/2018 Hospital Encounter Chris Ham MD CORONARY ANGIOS / PCI / STENT 07/25/2018 Surgery Chris Ham MD Severe aortic stenosis 07/25/2018 Hospital Encounter Chris Ham MD Severe aortic stenosis 07/04/2018 Hospital Radiology Encounter Chris Ham MD Severe aortic stenosis 07/04/2018 Hospital Radiology Encounter Chilango Mace MD Severe aortic stenosis (Primary Dx); Coronary artery disease involving [place] coronary artery of [place] heart without angina pectoris; Insulin dependent diabetes mellitus (HCC); Patient is Anglican 07/04/2018 Office Visit Cardiology Chris Ham MD Severe aortic stenosis (Primary Dx) 07/01/2018 Outside Orders Central Scheduling after 09/30/2017 Family History Medical History Relation Name Comments Diabetes Brother Heart disease Brother Heart disease Father Diabetes Mother Heart disease Mother Relation Name Status Comments Brother Father Mother Social History Date Tobacco Use Types Packs/Day Years Used Quit: 1979 Former Smoker 1 13 Smokeless Tobacco: Never Used Alcohol Use Drinks/Week oz/Week Comments No Alcohol Habits Answer Date Recorded How often do you have a drink containing alcohol? Never 07/04/2018 How many drinks containing alcohol do you have on Not asked a typical day when you are drinking? How often do you have six or more drinks on one Not asked occasion? Sex Assigned at Date Recorded Not on file Industry Job Start Date Occupation Not on file Not on file Not on file Travel End Travel History Travel Start No recent travel history available. Last Filed Vital Signs Time Taken Vital Sign Reading 09/20/2018 8:00 AM CDT Blood Pressure 130/61 09/20/2018 8:00 AM CDT Pulse 73 09/20/2018 8:00 AM CDT Temperature 37.1 C (98.8 F) 09/20/2018 8:00 AM CDT Respiratory Rate 18 09/20/2018 8:00 AM CDT Oxygen Saturation 97% - Inhaled Oxygen - Concentration 09/20/2018 8:00 AM CDT Weight 123.6 kg (272 lb 6.6 oz) 09/19/2018 5:32 AM CDT Height 188 cm (6' 2") 09/20/2018 8:00 AM CDT Body Mass Index 34.98 Plan of Treatment Not on file Implants Device Identifier Shelf Expiration Date Model / Serial / Lot Implanted Type Area Manufactur er 04/03/2020 [id number] / [id number] / Valve Heart Chilango 3 29mm [id number] Valves Aorta ARDON - [id number] LIFESCI Implanted: Qty: 1 on 09/19/2018 by Chris Ham MD Procedures Comments Procedure Name Priority Date/Time Associated Diagnosis RHYTHM STRIP - SCAN 09/23/2018 2:23 PM CDT ECHOCARDIOGRAM REPORT - 09/22/2018 SCAN 9:22 PM CDT VASCULAR DIAGRAM -SCAN 09/21/2018 5:52 PM CDT REPORT OF PROCEDURE - 09/21/2018 ENDOSCOPY SCAN 11:53 AM CDT RHYTHM STRIP - SCAN 09/21/2018 11:52 AM CDT VASCULAR DIAGRAM -SCAN 09/21/2018 11:52 AM CDT CARDIAC CATH REPORT - 09/21/2018 SCAN 11:52 AM CDT ECHOCARDIOGRAM REPORT - 09/20/2018 SCAN 9:20 PM CDT POCT-GLUCOSE METER Routine 09/20/2018 1:01 PM CDT 2D ECHO W/ DOPPLER STAT 09/20/2018 (CW/PW/COLOR) 11:30 AM CDT POCT-GLUCOSE METER Routine 09/20/2018 8:16 AM CDT CBC W/PLT COUNT & AUTO Routine 09/20/2018 DIFFERENTIAL 4:54 AM CDT MAGNESIUM Routine 09/20/2018 4:54 AM CDT BASIC METABOLIC PANEL (7) Routine 09/20/2018 4:54 AM CDT CBC W/PLT COUNT & AUTO Routine 09/20/2018 DIFFERENTIAL 4:54 AM CDT XR CHEST 1 VIEW Routine 09/20/2018 PORTABLE/BEDSIDE 4:18 AM CDT POCT-GLUCOSE METER Routine 09/19/2018 11:18 PM CDT ECHOCARDIOGRAM REPORT - 09/19/2018 SCAN 9:21 PM CDT POCT-GLUCOSE METER Routine 09/19/2018 8:18 PM CDT XR CHEST 1 VIEW ELAINA 09/19/2018 PORTABLE/BEDSIDE 5:45 PM CDT LIMITED 2D ECHOCARDIOGRAM STAT 09/19/2018 1:22 PM CDT BASIC METABOLIC PANEL (7) STAT 09/19/2018 12:22 PM CDT HEMOGLOBIN STAT 09/19/2018 12:22 PM CDT MAGNESIUM STAT 09/19/2018 12:22 PM CDT 2D ECHO W/ DOPPLER STAT 09/19/2018 (CW/PW/COLOR) 12:15 PM CDT ECG 12-LEAD Routine 09/19/2018 11:35 AM CDT Procedure Note - Interface, External Ris In - 09/19/2018 12:41 PM CDT Ventricula r Rate 65 BPM Atrial Rate 65 BPM P-R Interval 206 ms QRS Duration 100 ms Q-T Interval 428 ms QTC Calculatio n(Bazett) 445 ms P Celestine 85 degrees R Celestine 22 degrees T Celestine 48 degrees Normal sinus rhythm Nonspecifi c T wave abnormalit y Abnormal ECG No previous ECGs available ECG 12-LEAD STAT 09/19/2018 11:35 AM CDT POCT-ACT Routine 09/19/2018 11:16 AM CDT POCT-ACT Routine 09/19/2018 10:28 AM CDT TRANSESOPHAGEAL ECHO Routine 09/19/2018 8:08 AM CDT TAVR / JESSICA MCR - IP 09/19/2018 Nonrheumatic aortic valve PROC ONLY 7:30 AM CDT stenosis Case Notes (1) CASE POP6/ANEST HESIA/TAMMY/ 713mgy. Special Needs W/ / 713mgy. CONT WAVE PULSED DOPPLER Routine 09/19/2018 7:25 AM CDT COLOR-FLOW MAPPING Routine 09/19/2018 7:25 AM CDT POCT-GLUCOSE METER Routine 09/19/2018 6:06 AM CDT VASCULAR DIAGRAM -SCAN 08/18/2018 4:00 PM WEB OPERATIONS MANAGER REPORT OF PROCEDURE - 08/08/2018 ENDOSCOPY SCAN 1:40 PM WEB OPERATIONS MANAGER CARDIAC CATH REPORT - 08/08/2018 SCAN 1:40 PM WEB OPERATIONS MANAGER VASCULAR DIAGRAM -SCAN 08/08/2018 1:40 PM WEB OPERATIONS MANAGER CORONARY ANGIOS / PCI / 07/25/2018 Nonrheumatic aortic valve STENT 2:31 PM WEB OPERATIONS MANAGER stenosis Case Notes (45) CASE POP6 POCT-GLUCOSE METER Routine 07/25/2018 10:11 [address] MANAGER [address]/CTA ABDOMEN & PELVIS Routine 07/04/2018 Severe aortic stenosis 12:44 [address]PERATIONS MANAGER CT/CTA CHEST Routine 07/04/2018 Severe aortic stenosis 12:44 PM WEB OPERATIONS MANAGER POCT-CREATININE Routine 07/04/2018 Severe aortic stenosis 12:05 PM WEB OPERATIONS MANAGER after 09/30/2017 Results * RHYTHM STRIP - SCAN (09/23/2018 2:23 PM CDT) Only the most recent of 2 results within the time period is included. Narrative Performed At * ECHOCARDIOGRAM REPORT - SCAN (09/22/2018 9:22 PM CDT) Narrative Performed At * VASCULAR DIAGRAM -SCAN (09/21/2018 5:52 PM CDT) Only the most recent of 4 results within the time period is included. Narrative Performed At * EKG-SCANNED (09/21/2018 11:53 AM CDT) Only the most recent of 2 results within the time period is included. Narrative Performed At * CARDIAC CATH REPORT - SCAN (09/21/2018 11:52 AM CDT) Narrative Performed At * ECHOCARDIOGRAM REPORT - SCAN (09/20/2018 9:20 PM CDT) Narrative Performed At * POC-Glucose meter (09/20/2018 1:01 PM CDT) Only the most recent of 6 results within the time period is included. POC-Glucose Meter 239 (H)Comment: TESTED AT 70 - 110 mg/dL [facility] [address] [facility] [address] Specimen Blood Performing Organization Address City/State/Zipcode Phone Number [facility] [address] [place] [address] [facility] * 2D Echo W/Doppler(CW/PW/Color) (09/20/2018 11:30 AM CDT) Ejection Fraction [facility] CPACS Narrative Performed At Transthoracic Echocardiography Report (TTE) 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 Clinical History SEVERE , HTN,HLD,OBESITY Height: 74 inches Weight: 123.38 kg (272 lbs) BSA: 2.48 m^2 BMI: 34.92 kg/m^2 HR: 83 bpm BP: 190/97 mmHg Summary A percutaneous (TAVR) biologic AoV prosthesis is visualized . The prosthetic AoV appears well-seated with normal function by Doppler. AoV dimensionless obstructive index (DOI)) is 0.75 . SEEMA 3.4 cm2. Signature Findings Left Ventricle Normal left ventricular chamber size. Normal wall thickness. Normal overall left ventricular systolic function. No apparent segmental wall motion abnormalities. Global LV systolic function normal . Estimated LVEF by qualitative assessment is normal (>60%) . Left AtriumLA size is moderately enlarged . Right VentricleNormal right ventricle structure and function. Right Atrium Normal right atrium. Aortic Valve A percutaneous (TAVR) biologic AoV prosthesis is visualized . The prosthetic AoV appears well-seated with normal function by Doppler. AoV dimensionless obstructive index (DOI)) is 0.75 . SEEMA 3.4 cm2. Mitral Valve Mild MV leaflet thickening. Trace mitral regurgitation. Tricuspid ValveMild tricuspid regurgitation. Estimated peak systolic PA pressure is 35-40 mmHg . Pulmonic Valve Normal PV structure and function by limited views and Doppler. AortaAortic root size (SInus of Valsalva diameter) is normal . PericardiumNo evidence of pericardial effusion. IVC/SVC/PA/PV/PleuralThe estimated RA pressure by IVC dynamics 5-10mmHg . Chambers/Structures Left Atrium LA Dimension: 4.73 cmLA Area: 30.26 cm^2 LA Volume: 106.23 ml LA Vol. Index: 43 ml/m^2 Left Ventricle LVIDd: 5.11 cm LVEDV:124.33 ml LV Septum Diastolic: 0.98 cm LV PW Diastolic: 0.92 cm LVOT Diameter: 2.42 cm Aorta Ao Root S of Madelin.: 3.57 cm Doppler/Quantitative Measurements Aortic Valve Peak Velocity: 2.62 m/sMean Velocity: 1.46 m/s Peak Gradient: 27.55 mmHgMean Gradient: 10.92 mmHg AV Area (continuity): 3.45 cm^2 AV VTI: 43.96 cm AV DVI: 0.75 LVOT Peak Velocity: 1.38 m/s Peak Gradient: 7.61 mmHg Mean Velocity: 0.95 m/s Mean Gradient: 4.2 mmHg LVOT Diameter: 2.42 cmLVOT VTI: 33.01 cm LVOT Area: 4.6 cm^2 LVOT SV:151.76 ml LVOT CO: 12.6 l/min LVOT CI: 5.08 l/min/m^2 Tricuspid Valve TR Velocity: 2.87 m/s TR Gradient: 33.05 mmHg Procedure Note Interface, External Ris In - 09/20/2018 3:11 PM CDT Transthoracic Echocardiography Report (TTE) Demographics Patient Name TIMOTHY CAMILO Date of Study 09/20/2018 DAYDAY Gender Male Visit Number [id number] Race Unknown Room Number C633 Number Date of 1945 Referring Jitendra Perez Physician 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 Clinical History SEVERE , HTN,HLD,OBESITY Height: 74 inches Weight: 123.38 kg (272 lbs) BSA: 2.48 m^2 BMI: 34.92 kg/m^2 HR: 83 bpm BP: 190/97 mmHg Summary A percutaneous (TAVR) biologic AoV prosthesis is visualized . The prosthetic AoV appears well-seated with normal function by Doppler. AoV dimensionless obstructive index (DOI)) is 0.75 . SEEMA 3.4 cm2. Signature Findings Left Ventricle Normal left ventricular chamber size. Normal wall thickness. Normal overall left ventricular systolic function. No apparent segmental wall motion abnormalities. Global LV systolic function normal . Estimated LVEF by qualitative assessment is normal (>60%) . Left Atrium LA size is moderately enlarged . Right Ventricle Normal right ventricle structure and function. Right Atrium Normal right atrium. Aortic Valve A percutaneous (TAVR) biologic AoV prosthesis is visualized . The prosthetic AoV appears well-seated with normal function by Doppler. AoV dimensionless obstructive index (DOI)) is 0.75 . SEEMA 3.4 cm2. Mitral Valve Mild MV leaflet thickening. Trace mitral regurgitation. Tricuspid Valve Mild tricuspid regurgitation. Estimated peak systolic PA pressure is 35-40 mmHg . Pulmonic Valve Normal PV structure and function by limited views and Doppler. Aorta Aortic root size (SInus of Valsalva diameter) is normal . Pericardium No evidence of pericardial effusion. IVC/SVC/PA/PV/Pleural The estimated RA pressure by IVC dynamics 5-10mmHg . Chambers/Structures Left Atrium LA Dimension: 4.73 cm LA Area: 30.26 cm^2 LA Volume: 106.23 ml LA Vol. Index: 43 ml/m^2 Left Ventricle LVIDd: 5.11 cm LVEDV:124.33 ml LV Septum Diastolic: 0.98 cm LV PW Diastolic: 0.92 cm LVOT Diameter: 2.42 cm Aorta Ao Root S of Madelin.: 3.57 cm Doppler/Quantitative Measurements Aortic Valve Peak Velocity: 2.62 m/s Mean Velocity: 1.46 m/s Peak Gradient: 27.55 mmHg Mean Gradient: 10.92 mmHg AV Area (continuity): 3.45 cm^2 AV VTI: 43.96 cm AV DVI: 0.75 LVOT Peak Velocity: 1.38 m/s Peak Gradient: 7.61 mmHg Mean Velocity: 0.95 m/s Mean Gradient: 4.2 mmHg LVOT Diameter: 2.42 cm LVOT VTI: 33.01 cm LVOT Area: 4.6 cm^2 LVOT SV:151.76 ml LVOT CO: 12.6 l/min LVOT CI: 5.08 l/min/m^2 Tricuspid Valve TR Velocity: 2.87 m/s TR Gradient: 33.05 mmHg Performing Organization Address City/State/Zipcode Phone Number [facility] * CBC with platelet count + automated diff (09/20/2018 4:54 AM CDT) WBC 6.8 3.5 - 10.5 K/L [facility] RBC 3.84 (L) 4.63 - 6.08 M/L [facility] Hemoglobin 11.3 (L) 13.7 - 17.5 GM/DL [facility] Hematocrit 34.4 (L) 40.1 - 51.0 % [facility] MCV 89.6 79.0 - 92.2 fL [facility] MCH 29.4 25.7 - 32.2 pg [facility] MCHC 32.8 32.3 - 36.5 GM/DL [facility] RDW 14.2 11.6 - 14.4 % [facility] Platelets 103 (L) 150 - 450 K/CU MM [facility] MPV 10.8 9.4 - 12.4 fL [facility] nRBC 0 0 - 0 /100 WBC [facility] % Neutros 76 % [facility] % Lymphs 13 % [facility] % Monos 8 % [facility] % Eos 2 % [facility] % Baso 0 % [facility] # Neutros 5.16 1.78 - 5.38 K/L [facility] # Lymphs 0.89 (L) 1.32 - 3.57 K/L [facility] # Monos 0.56 0.30 - 0.82 K/L [facility] # Eos 0.16 0.04 - 0.54 K/L [facility] # Baso 0.03 0.01 - 0.08 K/L [facility] Immature 0 0 - 1 % [facility] Granulocytes-Relative [facility] Specimen Blood - Central Venous Line Performing Organization Address City/[facility] Phone Number [facility] [address] [place] [address] [facility] * Magnesium (09/20/2018 4:54 AM CDT) Only the most recent of 2 results within the time period is included. Magnesium 1.6 1.6 - 2.6 mg/dL [facility] Specimen Blood - Central Venous Line Performing Organization Address City/[facility]/Zipcode Phone Number [facility] [address] [place] [address] [facility] * Basic Metabolic Panel (09/20/2018 4:54 AM CDT) Only the most recent of 2 results within the time period is included. Sodium 137 136 - 145 meq/L [facility] Potassium 4.3 3.5 - 5.1 meq/L [facility] Chloride 104 98 - 107 meq/L [facility] CO2 25 22 - 29 meq/L [facility] BUN 14 7 - 21 mg/dL [facility] Creatinine 1.10 0.57 - 1.25 mg/dL [facility] Glucose 186 (H) 70 - 105 mg/dL [facility] Calcium 8.3 (L) 8.4 - 10.2 mg/dL [facility] EGFR 66Comment: ESTIMATED GFR IS mL/min/1.73 sq m [facility] NOT ACCURATE CREATININE [facility] CLEARANCE IN PREDICTING GLOMERULAR FILTRATION RATE. ESTIMATED GFR IS NOT APPLICABLE FOR DIALYSIS PATIENTS. Specimen Blood - Central Venous Line Performing Organization Address City/State/Zipcode Phone Number [facility] [address] [place] [address] [facility] * XR chest 1 view portable / bedside (09/20/2018 4:18 AM CDT) Only the most recent of 2 results within the time period is included. Narrative Performed At FINAL REPORT [facility] Comparison: 09/19/2018 TECHNIQUE: Single view of the chest. FINDINGS: Lung volumes are low, grossly clear. Cardiac silhouette is within normal limits. No acute skeletal abnormality. Right internal jugular sheath noted. Signed: Mukesh Neri MD Report Verified Date/Time:09/20/2018 11:21:39 Reading Location: [facility] Radiology Reading Room Procedure Note Interface, External Ris In - 09/20/2018 11:23 AM CDT FINAL REPORT Comparison: 09/19/2018 TECHNIQUE: Single view of the chest. FINDINGS: Lung volumes are low, grossly clear. Cardiac silhouette is within normal limits. No acute skeletal abnormality. Right internal jugular sheath noted. Signed: Mukesh Neri MD Report Verified Date/Time: 09/20/2018 11:21:39 Reading Location: [facility] Radiology Reading Room Performing Organization Address City/State/Zipcode Phone Number [facility] * ECHOCARDIOGRAM REPORT - SCAN (09/19/2018 9:21 PM CDT) Narrative Performed At * Limited 2D Echocardiogram (09/19/2018 1:22 PM CDT) Ejection Fraction [facility] Narrative Performed At Transthoracic Echocardiography Report (TTE) [facility] Demographics [facility] Patient Name TIMOTHY CAMILO Date of Study 09/19/2018 DAYDAY [id number] GenderMale Visit Number [id number] RaceUnknown [id number] Number SCLP Number Date of Birth1945 Referring Physician Age73 year(s) Setter Induction Heating Equipment Shakir Fontenot [facility] InterpretingBSC Needs to be Pre Physician Read Gaurav Aguilar MD Fellow KATI Hinds Procedure Type of Study TTE procedure:LIMITED 2D ECHOCARDIOGRAM (STAT) Indications:Initial post operative evaluation of prosthetic valve. Clinical History HGB 12.1 Valvular heart disease, aortic stenosis Coronary Artery Disease Dyspnea on exertion Diabetes Hypertension TAVR 09/19/18 29mm Ardon Chilango Height: 74 inches Weight: 123.38 kg (272 lbs) BSA: 2.48 m^2 BMI: 34.92 kg/m^2 HR: 59 bpm BP: 173/84 mmHg Summary Limited 2D exam and Doppler exam to address study indication. The left ventricle is chamber size (by PSLAX dimension) is normal (male - LVIDd 4.2-5.8cm) . Normal LV wall thickness. All of the LV segments are hyperkinetic . Estimated LVEF by qualitative assessment is increased (>70%) . A percutaneous (TAVR) biologic AoV prosthesis is visualized. AoV resting dimensionless obstructive index (DOI) is 0.61 and mean gradient is 7.3 mmHg. AoV area at rest by continuity equation is in the range of 2.56 cm2. Unable to estimate peak systolic PA pressure; inadequate TR velocity signal. Signature Findings Rhythm/BPRegular sinus rhythm during the exam. Left Ventricle Limited 2D exam and Doppler exam to address study indication. The left ventricle is chamber size (by PSLAX dimension) is normal (male - LVIDd 4.2-5.8cm) . Normal LV wall thickness. All of the LV segments are hyperkinetic . Estimated LVEF by qualitative assessment is increased (>70%) . Left AtriumLA size is normal (16-34 ml/m2) . Right VentricleThe right ventricular chamber size and systolic function are within normal limits. Right Atrium RA size is normal. Atrial SeptumNormal interatrial septum by available views. Aortic Valve A percutaneous (TAVR) biologic AoV prosthesis is visualized. AoV resting dimensionless obstructive index (DOI) is 0.61 and mean gradient is 7.3 mmHg. AoV area at rest by continuity equation is in the range of 2.56 cm2. Mitral Valve Normal MV structure. Doppler evaluation not performed. Tricuspid ValveTV structure is normal. A trace of tricuspid regurgitation. Unable to estimate peak systolic PA pressure; inadequate TR velocity signal. Pulmonic Valve Normal PV structure. Doppler evaluation not performed. AortaAortic root size (SInus of Valsalva diameter) is normal . Proximal ascending aorta size is mildly dilated . PericardiumNo significant pericardial effusion is visualized. IVC/SVC/PA/PV/PleuralThe estimated RA pressure by IVC dynamics 0-5mmHg . Chambers/Structures Left Atrium LA Volume: 84.88 ml LA Area: 25.95 cm^2 LA Vol. Index: 34 ml/m^2 Left Ventricle LVIDd: 5.42 cm LV Septum Diastolic: 0.97 cm LV PW Diastolic: 1.14 cm LVOT Diameter: 2.2 cm Aorta Ao Root S of Madelin.: 2.59 cmAscending Aorta: 3.88 cm Doppler/Quantitative Measurements Aortic Valve Peak Velocity: 1.96 m/sMean Velocity: 1.22 m/s Peak Gradient: 15.41 mmHgMean Gradient: 7.26 mmHg AV Area (continuity): 2.56 cm^2 AV VTI: 41.32 cm AV DVI: 0.67 LVOT Peak Velocity: 1.19 m/s Peak Gradient: 5.69 mmHg Mean Velocity: 0.74 m/s Mean Gradient: 2.54 mmHg LVOT Diameter: 2.2 cm LVOT VTI: 27.86 cm LVOT Area: 3.8 cm^2 LVOT SV:105.85 ml LVOT CO: 6.25 l/min LVOT CI: 2.52 l/min/m^2 Procedure Note Interface, External Ris In - 09/19/2018 4:44 PM CDT Transthoracic Echocardiography Report (TTE) Demographics Patient Name TIMOTHY CAMILO Date of Study 09/19/2018 DAYDAY Gender Male Visit Number [id number] Race Unknown Room Number SCLP Number Date of 1945 Referring Physician 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 Clinical History HGB 12.1 Valvular heart disease, aortic stenosis Coronary Artery Disease Dyspnea on exertion Diabetes Hypertension TAVR 09/19/18 29mm Ardon Chilango Height: 74 inches Weight: 123.38 kg (272 lbs) BSA: 2.48 m^2 BMI: 34.92 kg/m^2 HR: 59 bpm BP: 173/84 mmHg Summary Limited 2D exam and Doppler exam to address study indication. The left ventricle is chamber size (by PSLAX dimension) is normal (male - LVIDd 4.2-5.8cm) . Normal LV wall thickness. All of the LV segments are hyperkinetic . Estimated LVEF by qualitative assessment is increased (>70%) . A percutaneous (TAVR) biologic AoV prosthesis is visualized. AoV resting dimensionless obstructive index (DOI) is 0.61 and mean gradient is 7.3 mmHg. AoV area at rest by continuity equation is in the range of 2.56 cm2. Unable to estimate peak systolic PA pressure; inadequate TR velocity signal. Signature Findings Rhythm/BP Regular sinus rhythm during the exam. Left Ventricle Limited 2D exam and Doppler exam to address study indication. The left ventricle is chamber size (by PSLAX dimension) is normal (male - LVIDd 4.2-5.8cm) . Normal LV wall thickness. All of the LV segments are hyperkinetic . Estimated LVEF by qualitative assessment is increased (>70%) . Left Atrium LA size is normal (16-34 ml/m2) . Right Ventricle The right ventricular chamber size and systolic function are within normal limits. Right Atrium RA size is normal. Atrial Septum Normal interatrial septum by available views. Aortic Valve A percutaneous (TAVR) biologic AoV prosthesis is visualized. AoV resting dimensionless obstructive index (DOI) is 0.61 and mean gradient is 7.3 mmHg. AoV area at rest by continuity equation is in the range of 2.56 cm2. Mitral Valve Normal MV structure. Doppler evaluation not performed. Tricuspid Valve TV structure is normal. A trace of tricuspid regurgitation. Unable to estimate peak systolic PA pressure; inadequate TR velocity signal. Pulmonic Valve Normal PV structure. Doppler evaluation not performed. Aorta Aortic root size (SInus of Valsalva diameter) is normal . Proximal ascending aorta size is mildly dilated . Pericardium No significant pericardial effusion is visualized. IVC/SVC/PA/PV/Pleural The estimated RA pressure by IVC dynamics 0-5mmHg . Chambers/Structures Left Atrium LA Volume: 84.88 ml LA Area: 25.95 cm^2 LA Vol. Index: 34 ml/m^2 Left Ventricle LVIDd: 5.42 cm LV Septum Diastolic: 0.97 cm LV PW Diastolic: 1.14 cm LVOT Diameter: 2.2 cm Aorta Ao Root S of Madelin.: 2.59 cm Ascending Aorta: 3.88 cm Doppler/Quantitative Measurements Aortic Valve Peak Velocity: 1.96 m/s Mean Velocity: 1.22 m/s Peak Gradient: 15.41 mmHg Mean Gradient: 7.26 mmHg AV Area (continuity): 2.56 cm^2 AV VTI: 41.32 cm AV DVI: 0.67 LVOT Peak Velocity: 1.19 m/s Peak Gradient: 5.69 mmHg Mean Velocity: 0.74 m/s Mean Gradient: 2.54 mmHg LVOT Diameter: 2.2 cm LVOT VTI: 27.86 cm LVOT Area: 3.8 cm^2 LVOT SV:105.85 ml LVOT CO: 6.25 l/min LVOT CI: 2.52 l/min/m^2 Performing Organization Address [facility] Phone Number [facility] CPACS * Hemoglobin (09/19/2018 12:22 PM CDT) Hemoglobin 12.1 (L) 13.7 - 17.5 GM/DL [facility] Specimen Blood - Line, Arterial Performing Organization Address [facility] Phone Number [facility] [address] [place] [address] [facility] * ECG 12 lead (09/19/2018 11:35 AM CDT) Narrative Performed At Ventricular Rate 65 BPM GE MUSE Atrial Rate 65 BPM P-R Interval 206 ms QRS Duration 100 ms Q-T Interval 428 ms QTC Calculation(Bazett) 445 ms P Celestine 85 degrees R Celestine 22 degrees T Celestine 48 degrees Normal sinus rhythm Nonspecific T wave abnormality Abnormal ECG No previous ECGs available Confirmed by MD MADDI, GAURAV Luong ([id number]) on 09/20/2018 6:27:02 AM Procedure Note Interface, External Ris In - 09/20/2018 6:27 AM CDT Ventricular Rate 65 BPM Atrial Rate 65 BPM P-R Interval 206 ms QRS Duration 100 ms Q-T Interval 428 ms QTC Calculation(Bazett) 445 ms P Celestine 85 degrees R Celestine 22 degrees T Celestine 48 degrees Normal sinus rhythm Nonspecific T wave abnormality Abnormal ECG No previous ECGs available Confirmed by MD MADDI, GAURAV Luong ([id number]) on 09/20/2018 6:27:02 AM Performing Organization Address City/[facility] Phone Number GE MUSE * POC ACTIVATED CLOTTING TIME (09/19/2018 11:16 AM CDT) Only the most recent of 2 results within the time period is included. Activated Clotting Time 114Comment: TESTED AT [facility] sec [address] Specimen Blood Performing Organization Address [facility] [place] [address] [facility] * Transesophageal echo (09/19/2018 8:08 AM CDT) Ejection Fraction [facility] ECHO [facility]ART[facility] Narrative Performed At Transesophageal Echocardiography Report (TAMMY) 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 Clinical History ,CAD,DEPRESSION,DM,MCGINNIS,GOUT,HTN,VA,S/P STENT,SOB,SLEEP APNEA Height: 74 inches Weight: 123.38 kg (272 lbs) BSA: 2.48 m^2 BMI: 34.92 kg/m^2 HR: 53 bpm BP: 150/73 mmHg Summary POST PROCEDURE: S/P TAVR A percutaneous (TAVR) biologic AoV prosthesis is visualized . The prosthetic AoV appears well-seated with normal function by Doppler. Normal overall left ventricular systolic function. No significant pericardial effusion is visualized. Signature Findings LeftNormal left ventricular chamber size. Normal overall left Ventricle ventricular systolic function. No apparent segmental wall motion abnormalities. Left Atrium LA is enlarged but severity assessment is unreliable due to know TAMMY sector size limitation. No evidence of left atrial or left atrial appendage thrombus. Right The right ventricular chamber size and systolic function are Ventricle within normal limits. Right AtriumRA size is dilated. Aortic ValveSevere AoV cusp thickening. Moderate AoV cusp calcification. POST PROCEDURE: A percutaneous (TAVR) biologic AoV prosthesis is visualized . The prosthetic AoV appears well-seated with normal function by Doppler. Mitral ValveMild MV leaflet thickening. Trace mitral regurgitation. Tricuspid TV structure is normal by limited views. Valve Unable to estimate peak systolic PA pressure; inadequate TR velocity signal. PulmonicPV is not well visualized. Valve Aorta Aortic root size (SInus of Valsalva diameter) is normal . Pericardium No significant pericardial effusion is visualized. 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 Clinical History ,CAD,DEPRESSION,DM,MCGINNIS,GOUT,HTN,VA,S/P STENT,SOB,SLEEP APNEA Height: 74 inches Weight: 123.38 kg (272 lbs) BSA: 2.48 m^2 BMI: 34.92 kg/m^2 HR: 53 bpm BP: 150/73 mmHg Summary POST PROCEDURE: S/P TAVR A percutaneous (TAVR) biologic AoV prosthesis is visualized . The prosthetic AoV appears well-seated with normal function by Doppler. Normal overall left ventricular systolic function. No significant pericardial effusion is visualized. Signature Findings Left Normal left ventricular chamber size. Normal overall left Ventricle ventricular systolic function. No apparent segmental wall motion abnormalities. Left Atrium LA is enlarged but severity assessment is unreliable due to know TAMMY sector size limitation. No evidence of left atrial or left atrial appendage thrombus. Right The right ventricular chamber size and systolic function are Ventricle within normal limits. Right Atrium RA size is dilated. Aortic Valve Severe AoV cusp thickening. Moderate AoV cusp calcification. POST PROCEDURE: A percutaneous (TAVR) biologic AoV prosthesis is visualized . The prosthetic AoV appears well-seated with normal function by Doppler. Mitral Valve Mild MV leaflet thickening. Trace mitral regurgitation. Tricuspid TV structure is normal by limited views. Valve Unable to estimate peak systolic PA pressure; inadequate TR velocity signal. Pulmonic PV is not well visualized. Valve Aorta Aortic root size (SInus of Valsalva diameter) is normal . Pericardium No significant pericardial effusion is visualized. Performing Organization Address City/State/Zipcode Phone Number [facility] * CARDIAC CATH REPORT - SCAN (08/08/2018 1:40 PM WEB OPERATIONS MANAGER) Narrative Performed At * CTA chest (07/04/2018 12:44 PM WEB OPERATIONS MANAGER) Narrative Performed At Addendum Begins [employer] RIS REPORT STATUS:A Addendum: I agree with the previously described non vascular findings by Dr. Real. Signed: Bentley Tapia MD Report Verified Date/Time:07/04/2018 18:44:08 Reading Location: [place] [address] Angio Body Reading Room Addendum Ends FINAL REPORT CT angiography of the thoracoabdominal aorta and pelvic arteries, 04 July 2018. INDICATION: This is a 73 years old male, with a diagnosis of aortic stenosis, presents for preprocedure TAVR assessment. This study is performed in an attempt to avoid an invasive procedure. TECHNIQUE: Spiral acquisition before and during intravenous contrast administration using a Paco multidetector CT scanner. Images were obtained before and during the dynamic passage of intravenous contrast material.Multi-planar 3-D volume-rendering reconstruction was performed using an independent workstation interactively by the interpreting physician as well as the 3-D specialist for optimal visualization of the thoracoabdominal aorta, the pelvic arteries as well as its proximal branches. Please refer to the contrast sheet scanned in the EPIC system for the amount and route of contrast given. This exam was performed according to our departmental dose-optimisation programme, which includes automated exposure control, adjustment of the mA and/or kV according to patient size and/or use of iterative reconstruction technique. Dose modulation, iterative reconstruction, and/or weight based adjustment of the mA/kV was utilized to reduce the radiation dose to as low as reasonably achievable. FINDINGS: VASCULAR: The central pulmonary artery is enlarged. There is no evidence of central pulmonary artery embolism. No pericardial effusion is identified. The cardiac chambers demonstrate normal atrioventricular and ventriculoarterial concordance, and systemic and pulmonary venous return. The left ventricle is at the upper limits of normal in size. Mild left atrial prominence is identified. Coronary artery origins are normal and scattered coronary artery calcifications identified in the proximal LAD. No mitral annular calcification is seen. Patient has a diagnosis of aortic stenosis. The aortic valve is tricuspid. The aortic Agatston score is 2919. Aortic valve area is approximately 72 sq mm. Regarding the aorta, there is mild ectasia is seen in the mid ascending thoracic aorta and scattered calcification is seen in the ascending thoracic aorta. The transverse arch and descending thoracic aorta there is normal in course and calibre. The abdominal aorta has mild circumferential calcific atherosclerosis seen in the infrarenal abdominal aorta. No ectasia or aneurysmal dilation is seen. No acute aortic pathology is seen and no dissection or contained rupture is identified. Arch vessel branching pattern is normal and the visualised arch vessels are seen to be patent proximally. The left subclavian artery has minimal atherosclerosis identified, and at image 21, measures approximately 7 mm in diameter. The right subclavian artery, has mild calcific atherosclerosis identified, at image 23, measure 7 to 8 mm in diameter. The celiac axis and SMA are widely patent. The MANISH is patent. Single left and right renal arteries are seen are widely patent with eccentric nonobstructive calcific atherosclerosis identified, seen at the takeoff of the left renal artery. The common iliac, external iliac, common femoral, and the visualised superficial femoral arteries are patent with no obstructive lesion identified except for the presence of some scattered calcific atherosclerosis. Dimensions that may be helpful for TAVR as described as follows: Mild ectasia is seen in the mid ascending thoracic aorta and only scattered calcific effusion is seen in the ascending thoracic aorta. The major and minor aortic annulus diameter measures 30.6 and 22.9 mm, respectively. The aortic annulus perimeter measured 85 mm and the cross-sectional area measures 552 mm2. The aortic annulus diameter at the traditional LVOT and coronal LVOT measures 23.4 and 26.5 mm, respectively. For reference purpose, per ARDON S3 brochure, recommendation are as follows: CT area between 273 to 345 mm2 (20 mm valve); 338 to 430 mm2 (23 mm valve); 430 to 546 mm2 (26 mm valve); 540 to 683 mm2 (29 mm valve). For reference purpose, per CoreValve Evolut R brochure, recommendation are as follows: CT perimeter between 56.5-62.8 mm (23 mm valve); 62.8-72.3 mm (26 mm valve); 72.3-81.7 mm (29 mm valve); and 81.7-94.2. mm (34 mm valve). Agatston Score is 2919. Aortic valve area is 72 sq mm. The sinus of Valsalva height, RCC (diastole): 13.2 mm The sinus of Valsalva height, LCC (diastole): 10.2 mm The sinus of Valsalva diameter, RCC (diastole): 31.5 mm The sinus of Valsalva diameter, LCC (diastole): 32.5 mm The sinus of Valsalva diameter, NCC (diastole): 30.3 mm The sinotubular junction measures approximately 34 x 34 mm. The aortic root angulation measures 54.0 degrees. The angle of delivery is ANDERSON 6 CAU 13. The minimal and perpendicular abdominal aortic diameter measure 15.2 and 17.1 mm, respectively. The mid ascending thoracic aorta measure 4.0 x 4.0 cm indicating mild ectasia. There is no evidence of thoracoabdominal aortic aneurysm or stent placement present. The minimum and the perpendicular left common iliac artery measures 8.7 and 10.4 mm, respectively with mild to moderatetortuosity and mildcalcific atherosclerosis present. The minimum and the perpendicular left external iliac artery measures 8.1 and 8.1 mm, respectively with mildtortuosity and nocalcific atherosclerosis present. The minimum and the perpendicular left femoral artery measures 8.2 and 8.6 mm, respectively with mildtortuosity and tiny focalcalcific atherosclerosis present. The minimum and the perpendicular right common iliac artery measures 8.6 and 10.3 mm, respectively with mildtortuosity and mild calcific atherosclerosis present. The minimum and the perpendicular rightexternal iliac artery measures 8.2 and 8.2 mm, respectively with moderatetortuosity and nocalcific atherosclerosis present. The minimum and the perpendicular right femoral artery measures 8.6 and 8.6 mm, respectively with minimaltortuosity and mild focal calcific atherosclerosis present. NON-VASCULAR: The visualised thyroid gland appears unremarkable. The chest wall and mediastinum is unremarkable. No significant adenopathy is identified in the mediastinum. In the lung windows, no endobronchial lesion is seen, and no pleural effusions identified. Some atelectatic changes are seen. No suspicious pulmonary nodule is identified. In the abdomen, the liver and spleen appears unremarkable. The liver edge is smooth. No abnormal enhancing structure is identified. The gallbladder, pancreas and the adrenal glands appears unremarkable. No acute renal pathology is seen and no hydronephrosis or perirenal fluid collection is identified.A renal cyst is identified in the posterior aspect of the right kidney, measure 1.2 cm in diameter, image 396. Bowel is not well assessed by CT angiography as enteric contrast is not given. No obvious bowel dilation is identified. Scattered colonic diverticulum is present with no inflammatory changes present. Bilateral fat-containing inguinal hernia is identified. The prostate is prominent. The bladder is mildly dilated. No acute bony pathology is identified. Mild degenerative changes is noted. CONCLUSIONS: 1. Patient has a diagnosis of aortic stenosis. The aortic valve is tricuspid. Agatston score is approximately 2919. Aortic valve area is 72 sq mm. No obvious mitral annular calcification is identified. Mild ectasia is seen in the ascending thoracic aorta, scattered calcifications seen in the ascending thoracic aorta. Dimensions that may be helpful for TAVR as described above. 2. Normal coronary artery origins. Coronary artery calcification is seen in the LAD and RCA territory. 3. The central pulmonary artery is mildly prominent. No evidence of central pulmonary artery embolism. No acute pulmonary pathology is identified. 4. Other findings as described above. 5. An addendum will be dictated by the Leach Tank Tender Radiologist regarding the nonvascular findings. Signed: Chemo Real MD Report Verified Date/Time:07/04/2018 15:30:35 Reading Location: [place] [address] Cardiology MRI Procedure Note Interface, External Ris In - 07/07/2018 10:43 PM WEB OPERATIONS MANAGER Addendum Begins REPORT STATUS:A Addendum: I agree with the previously described non vascular findings by Dr. Real. Signed: Bentley Tapia MD Report Verified Date/Time: 07/04/2018 18:44:08 Reading Location: [place] [address] Angio Body Reading Room Addendum Ends FINAL REPORT CT angiography of the thoracoabdominal aorta and pelvic arteries, 04 July 2018. INDICATION: This is a 73 years old male, with a diagnosis of aortic stenosis, presents for preprocedure TAVR assessment. This study is performed in an attempt to avoid an invasive procedure. TECHNIQUE: Spiral acquisition before and during intravenous contrast administration using a Paco multidetector CT scanner. Images were obtained before and during the dynamic passage of intravenous contrast material. Multi-planar 3-D volume-rendering reconstruction was performed using an independent workstation interactively by the interpreting physician as well as the 3-D specialist for optimal visualization of the thoracoabdominal aorta, the pelvic arteries as well as its proximal branches. Please refer to the contrast sheet scanned in the EPIC system for the amount and route of contrast given. This exam was performed according to our departmental dose-optimisation programme, which includes automated exposure control, adjustment of the mA and/or kV according to patient size and/or use of iterative reconstruction technique. Dose modulation, iterative reconstruction, and/or weight based adjustment of the mA/kV was utilized to reduce the radiation dose to as low as reasonably achievable. FINDINGS: VASCULAR: The central pulmonary artery is enlarged. There is no evidence of central pulmonary artery embolism. No pericardial effusion is identified. The cardiac chambers demonstrate normal atrioventricular and ventriculoarterial concordance, and systemic and pulmonary venous return. The left ventricle is at the upper limits of normal in size. Mild left atrial prominence is identified. Coronary artery origins are normal and scattered coronary artery calcifications identified in the proximal LAD. No mitral annular calcification is seen. Patient has a diagnosis of aortic stenosis. The aortic valve is tricuspid. The aortic Agatston score is 2919. Aortic valve area is approximately 72 sq mm. Regarding the aorta, there is mild ectasia is seen in the mid ascending thoracic aorta and scattered calcification is seen in the ascending thoracic aorta. The transverse arch and descending thoracic aorta there is normal in course and calibre. The abdominal aorta has mild circumferential calcific atherosclerosis seen in the infrarenal abdominal aorta. No ectasia or aneurysmal dilation is seen. No acute aortic pathology is seen and no dissection or contained rupture is identified. Arch vessel branching pattern is normal and the visualised arch vessels are seen to be patent proximally. The left subclavian artery has minimal atherosclerosis identified, and at image 21, measures approximately 7 mm in diameter. The right subclavian artery, has mild calcific atherosclerosis identified, at image 23, measure 7 to 8 mm in diameter. The celiac axis and SMA are widely patent. The MANISH is patent. Single left and right renal arteries are seen are widely patent with eccentric nonobstructive calcific atherosclerosis identified, seen at the takeoff of the left renal artery. The common iliac, external iliac, common femoral, and the visualised superficial femoral arteries are patent with no obstructive lesion identified except for the presence of some scattered calcific atherosclerosis. Dimensions that may be helpful for TAVR as described as follows: Mild ectasia is seen in the mid ascending thoracic aorta and only scattered calcific effusion is seen in the ascending thoracic aorta. The major and minor aortic annulus diameter measures 30.6 and 22.9 mm, respectively. The aortic annulus perimeter measured 85 mm and the cross-sectional area measures 552 mm2. The aortic annulus diameter at the traditional LVOT and coronal LVOT measures 23.4 and 26.5 mm, respectively. For reference purpose, per ARDON S3 brochure, recommendation are as follows: CT area between 273 to 345 mm2 (20 mm valve); 338 to 430 mm2 (23 mm valve); 430 to 546 mm2 (26 mm valve); 540 to 683 mm2 (29 mm valve). For reference purpose, per CoreValve Evolut R brochure, recommendation are as follows: CT perimeter between 56.5-62.8 mm (23 mm valve); 62.8-72.3 mm (26 mm valve); 72.3-81.7 mm (29 mm valve); and 81.7-94.2. mm (34 mm valve). Agatston Score is 2919. Aortic valve area is 72 sq mm. The sinus of Valsalva height, RCC (diastole): 13.2 mm The sinus of Valsalva height, LCC (diastole): 10.2 mm The sinus of Valsalva diameter, RCC (diastole): 31.5 mm The sinus of Valsalva diameter, LCC (diastole): 32.5 mm The sinus of Valsalva diameter, NCC (diastole): 30.3 mm The sinotubular junction measures approximately 34 x 34 mm. The aortic root angulation measures 54.0 degrees. The angle of delivery is ANDERSON 6 CAU 13. The minimal and perpendicular abdominal aortic diameter measure 15.2 and 17.1 mm, respectively. The mid ascending thoracic aorta measure 4.0 x 4.0 cm indicating mild ectasia. There is no evidence of thoracoabdominal aortic aneurysm or stent placement present. The minimum and the perpendicular left common iliac artery measures 8.7 and 10.4 mm, respectively with mild to moderate tortuosity and mild calcific atherosclerosis present. The minimum and the perpendicular left external iliac artery measures 8.1 and 8.1 mm, respectively with mild tortuosity and no calcific atherosclerosis present. The minimum and the perpendicular left femoral artery measures 8.2 and 8.6 mm, respectively with mild tortuosity and tiny focal calcific atherosclerosis present. The minimum and the perpendicular right common iliac artery measures 8.6 and 10.3 mm, respectively with mild tortuosity and mild calcific atherosclerosis present. The minimum and the perpendicular right external iliac artery measures 8.2 and 8.2 mm, respectively with moderate tortuosity and no calcific atherosclerosis present. The minimum and the perpendicular right femoral artery measures 8.6 and 8.6 mm, respectively with minimal tortuosity and mild focal calcific atherosclerosis present. NON-VASCULAR: The visualised thyroid gland appears unremarkable. The chest wall and mediastinum is unremarkable. No significant adenopathy is identified in the mediastinum. In the lung windows, no endobronchial lesion is seen, and no pleural effusions identified. Some atelectatic changes are seen. No suspicious pulmonary nodule is identified. In the abdomen, the liver and spleen appears unremarkable. The liver edge is smooth. No abnormal enhancing structure is identified. The gallbladder, pancreas and the adrenal glands appears unremarkable. No acute renal pathology is seen and no hydronephrosis or perirenal fluid collection is identified. A renal cyst is identified in the posterior aspect of the right kidney, measure 1.2 cm in diameter, image 396. Bowel is not well assessed by CT angiography as enteric contrast is not given. No obvious bowel dilation is identified. Scattered colonic diverticulum is present with no inflammatory changes present. Bilateral fat-containing inguinal hernia is identified. The prostate is prominent. The bladder is mildly dilated. No acute bony pathology is identified. Mild degenerative changes is noted. CONCLUSIONS: 1. Patient has a diagnosis of aortic stenosis. The aortic valve is tricuspid. Agatston score is approximately 2919. Aortic valve area is 72 sq mm. No obvious mitral annular calcification is identified. Mild ectasia is seen in the ascending thoracic aorta, scattered calcifications seen in the ascending thoracic aorta. Dimensions that may be helpful for TAVR as described above. 2. Normal coronary artery origins. Coronary artery calcification is seen in the LAD and RCA territory. 3. The central pulmonary artery is mildly prominent. No evidence of central pulmonary artery embolism. No acute pulmonary pathology is identified. 4. Other findings as described above. 5. An addendum will be dictated by the [employer] [employer] Tender Radiologist regarding the nonvascular findings. Signed: Chemo Real MD Report Verified Date/Time: 07/04/2018 15:30:35 Reading Location: [facility] P047 Cardiology MRI Performing Organization Address City/State/Zipcode Phone Number [employer] RIS * CTA abdomen & pelvis (07/04/2018 12:44 PM WEB OPERATIONS MANAGER) Narrative Performed At Addendum Begins [facility] RIS REPORT STATUS:A Addendum: I agree with the previously described non vascular findings by Dr. Real. Signed: Bentley Tapia MD Report Verified Date/Time:07/04/2018 18:44:08 Reading Location: [place] [address] Angio Body Reading Room Addendum Ends FINAL REPORT CT angiography of the thoracoabdominal aorta and pelvic arteries, 04 July 2018. INDICATION: This is a 73 years old male, with a diagnosis of aortic stenosis, presents for preprocedure TAVR assessment. This study is performed in an attempt to avoid an invasive procedure. TECHNIQUE: Spiral acquisition before and during intravenous contrast administration using a Paco multidetector CT scanner. Images were obtained before and during the dynamic passage of intravenous contrast material.Multi-planar 3-D volume-rendering reconstruction was performed using an independent workstation interactively by the interpreting physician as well as the 3-D specialist for optimal visualization of the thoracoabdominal aorta, the pelvic arteries as well as its proximal branches. Please refer to the contrast sheet scanned in the EPIC system for the amount and route of contrast given. This exam was performed according to our departmental dose-optimisation programme, which includes automated exposure control, adjustment of the mA and/or kV according to patient size and/or use of iterative reconstruction technique. Dose modulation, iterative reconstruction, and/or weight based adjustment of the mA/kV was utilized to reduce the radiation dose to as low as reasonably achievable. FINDINGS: VASCULAR: The central pulmonary artery is enlarged. There is no evidence of central pulmonary artery embolism. No pericardial effusion is identified. The cardiac chambers demonstrate normal atrioventricular and ventriculoarterial concordance, and systemic and pulmonary venous return. The left ventricle is at the upper limits of normal in size. Mild left atrial prominence is identified. Coronary artery origins are normal and scattered coronary artery calcifications identified in the proximal LAD. No mitral annular calcification is seen. Patient has a diagnosis of aortic stenosis. The aortic valve is tricuspid. The aortic Agatston score is 2919. Aortic valve area is approximately 72 sq mm. Regarding the aorta, there is mild ectasia is seen in the mid ascending thoracic aorta and scattered calcification is seen in the ascending thoracic aorta. The transverse arch and descending thoracic aorta there is normal in course and calibre. The abdominal aorta has mild circumferential calcific atherosclerosis seen in the infrarenal abdominal aorta. No ectasia or aneurysmal dilation is seen. No acute aortic pathology is seen and no dissection or contained rupture is identified. Arch vessel branching pattern is normal and the visualised arch vessels are seen to be patent proximally. The left subclavian artery has minimal atherosclerosis identified, and at image 21, measures approximately 7 mm in diameter. The right subclavian artery, has mild calcific atherosclerosis identified, at image 23, measure 7 to 8 mm in diameter. The celiac axis and SMA are widely patent. The MANISH is patent. Single left and right renal arteries are seen are widely patent with eccentric nonobstructive calcific atherosclerosis identified, seen at the takeoff of the left renal artery. The common iliac, external iliac, common femoral, and the visualised superficial femoral arteries are patent with no obstructive lesion identified except for the presence of some scattered calcific atherosclerosis. Dimensions that may be helpful for TAVR as described as follows: Mild ectasia is seen in the mid ascending thoracic aorta and only scattered calcific effusion is seen in the ascending thoracic aorta. The major and minor aortic annulus diameter measures 30.6 and 22.9 mm, respectively. The aortic annulus perimeter measured 85 mm and the cross-sectional area measures 552 mm2. The aortic annulus diameter at the traditional LVOT and coronal LVOT measures 23.4 and 26.5 mm, respectively. For reference purpose, per ARDON S3 brochure, recommendation are as follows: CT area between 273 to 345 mm2 (20 mm valve); 338 to 430 mm2 (23 mm valve); 430 to 546 mm2 (26 mm valve); 540 to 683 mm2 (29 mm valve). For reference purpose, per CoreValve Evolut R brochure, recommendation are as follows: CT perimeter between 56.5-62.8 mm (23 mm valve); 62.8-72.3 mm (26 mm valve); 72.3-81.7 mm (29 mm valve); and 81.7-94.2. mm (34 mm valve). Agatston Score is 2919. Aortic valve area is 72 sq mm. The sinus of Valsalva height, RCC (diastole): 13.2 mm The sinus of Valsalva height, LCC (diastole): 10.2 mm The sinus of Valsalva diameter, RCC (diastole): 31.5 mm The sinus of Valsalva diameter, LCC (diastole): 32.5 mm The sinus of Valsalva diameter, NCC (diastole): 30.3 mm The sinotubular junction measures approximately 34 x 34 mm. The aortic root angulation measures 54.0 degrees. The angle of delivery is ANDERSON 6 CAU 13. The minimal and perpendicular abdominal aortic diameter measure 15.2 and 17.1 mm, respectively. The mid ascending thoracic aorta measure 4.0 x 4.0 cm indicating mild ectasia. There is no evidence of thoracoabdominal aortic aneurysm or stent placement present. The minimum and the perpendicular left common iliac artery measures 8.7 and 10.4 mm, respectively with mild to moderatetortuosity and mildcalcific atherosclerosis present. The minimum and the perpendicular left external iliac artery measures 8.1 and 8.1 mm, respectively with mildtortuosity and nocalcific atherosclerosis present. The minimum and the perpendicular left femoral artery measures 8.2 and 8.6 mm, respectively with mildtortuosity and tiny focalcalcific atherosclerosis present. The minimum and the perpendicular right common iliac artery measures 8.6 and 10.3 mm, respectively with mildtortuosity and mild calcific atherosclerosis present. The minimum and the perpendicular rightexternal iliac artery measures 8.2 and 8.2 mm, respectively with moderatetortuosity and nocalcific atherosclerosis present. The minimum and the perpendicular right femoral artery measures 8.6 and 8.6 mm, respectively with minimaltortuosity and mild focal calcific atherosclerosis present. NON-VASCULAR: The visualised thyroid gland appears unremarkable. The chest wall and mediastinum is unremarkable. No significant adenopathy is identified in the mediastinum. In the lung windows, no endobronchial lesion is seen, and no pleural effusions identified. Some atelectatic changes are seen. No suspicious pulmonary nodule is identified. In the abdomen, the liver and spleen appears unremarkable. The liver edge is smooth. No abnormal enhancing structure is identified. The gallbladder, pancreas and the adrenal glands appears unremarkable. No acute renal pathology is seen and no hydronephrosis or perirenal fluid collection is identified.A renal cyst is identified in the posterior aspect of the right kidney, measure 1.2 cm in diameter, image 396. Bowel is not well assessed by CT angiography as enteric contrast is not given. No obvious bowel dilation is identified. Scattered colonic diverticulum is present with no inflammatory changes present. Bilateral fat-containing inguinal hernia is identified. The prostate is prominent. The bladder is mildly dilated. No acute bony pathology is identified. Mild degenerative changes is noted. CONCLUSIONS: 1. Patient has a diagnosis of aortic stenosis. The aortic valve is tricuspid. Agatston score is approximately 2919. Aortic valve area is 72 sq mm. No obvious mitral annular calcification is identified. Mild ectasia is seen in the ascending thoracic aorta, scattered calcifications seen in the ascending thoracic aorta. Dimensions that may be helpful for TAVR as described above. 2. Normal coronary artery origins. Coronary artery calcification is seen in the LAD and RCA territory. 3. The central pulmonary artery is mildly prominent. No evidence of central pulmonary artery embolism. No acute pulmonary pathology is identified. 4. Other findings as described above. 5. An addendum will be dictated by the [employer] Tender Radiologist regarding the nonvascular findings. Signed: Chemo Real MD Report Verified Date/Time:07/04/2018 15:30:35 Reading Location: [place] [address] Cardiology MRI Procedure Note Interface, External Ris In - 07/04/2018 6:46 PM WEB OPERATIONS MANAGER Addendum Begins REPORT STATUS:A Addendum: I agree with the previously described non vascular findings by Dr. Real. Signed: Bentley Tapia MD Report Verified Date/Time: 07/04/2018 18:44:08 Reading Location: [facility] P048 Angio Body Reading Room Addendum Ends FINAL REPORT CT angiography of the thoracoabdominal aorta and pelvic arteries, 04 July 2018. INDICATION: This is a 73 years old male, with a diagnosis of aortic stenosis, presents for preprocedure TAVR assessment. This study is performed in an attempt to avoid an invasive procedure. TECHNIQUE: Spiral acquisition before and during intravenous contrast administration using a Paco multidetector CT scanner. Images were obtained before and during the dynamic passage of intravenous contrast material. Multi-planar 3-D volume-rendering reconstruction was performed using an independent workstation interactively by the interpreting physician as well as the 3-D specialist for optimal visualization of the thoracoabdominal aorta, the pelvic arteries as well as its proximal branches. Please refer to the contrast sheet scanned in the EPIC system for the amount and route of contrast given. This exam was performed according to our departmental dose-optimisation programme, which includes automated exposure control, adjustment of the mA and/or kV according to patient size and/or use of iterative reconstruction technique. Dose modulation, iterative reconstruction, and/or weight based adjustment of the mA/kV was utilized to reduce the radiation dose to as low as reasonably achievable. FINDINGS: VASCULAR: The central pulmonary artery is enlarged. There is no evidence of central pulmonary artery embolism. No pericardial effusion is identified. The cardiac chambers demonstrate normal atrioventricular and ventriculoarterial concordance, and systemic and pulmonary venous return. The left ventricle is at the upper limits of normal in size. Mild left atrial prominence is identified. Coronary artery origins are normal and scattered coronary artery calcifications identified in the proximal LAD. No mitral annular calcification is seen. Patient has a diagnosis of aortic stenosis. The aortic valve is tricuspid. The aortic Agatston score is 2919. Aortic valve area is approximately 72 sq mm. Regarding the aorta, there is mild ectasia is seen in the mid ascending thoracic aorta and scattered calcification is seen in the ascending thoracic aorta. The transverse arch and descending thoracic aorta there is normal in course and calibre. The abdominal aorta has mild circumferential calcific atherosclerosis seen in the infrarenal abdominal aorta. No ectasia or aneurysmal dilation is seen. No acute aortic pathology is seen and no dissection or contained rupture is identified. Arch vessel branching pattern is normal and the visualised arch vessels are seen to be patent proximally. The left subclavian artery has minimal atherosclerosis identified, and at image 21, measures approximately 7 mm in diameter. The right subclavian artery, has mild calcific atherosclerosis identified, at image 23, measure 7 to 8 mm in diameter. The celiac axis and SMA are widely patent. The MANISH is patent. Single left and right renal arteries are seen are widely patent with eccentric nonobstructive calcific atherosclerosis identified, seen at the takeoff of the left renal artery. The common iliac, external iliac, common femoral, and the visualised superficial femoral arteries are patent with no obstructive lesion identified except for the presence of some scattered calcific atherosclerosis. Dimensions that may be helpful for TAVR as described as follows: Mild ectasia is seen in the mid ascending thoracic aorta and only scattered calcific effusion is seen in the ascending thoracic aorta. The major and minor aortic annulus diameter measures 30.6 and 22.9 mm, respectively. The aortic annulus perimeter measured 85 mm and the cross-sectional area measures 552 mm2. The aortic annulus diameter at the traditional LVOT and coronal LVOT measures 23.4 and 26.5 mm, respectively. For reference purpose, per ARDON S3 brochure, recommendation are as follows: CT area between 273 to 345 mm2 (20 mm valve); 338 to 430 mm2 (23 mm valve); 430 to 546 mm2 (26 mm valve); 540 to 683 mm2 (29 mm valve). For reference purpose, per CoreValve Evolut R brochure, recommendation are as follows: CT perimeter between 56.5-62.8 mm (23 mm valve); 62.8-72.3 mm (26 mm valve); 72.3-81.7 mm (29 mm valve); and 81.7-94.2. mm (34 mm valve). Agatston Score is 2919. Aortic valve area is 72 sq mm. The sinus of Valsalva height, RCC (diastole): 13.2 mm The sinus of Valsalva height, LCC (diastole): 10.2 mm The sinus of Valsalva diameter, RCC (diastole): 31.5 mm The sinus of Valsalva diameter, LCC (diastole): 32.5 mm The sinus of Valsalva diameter, NCC (diastole): 30.3 mm The sinotubular junction measures approximately 34 x 34 mm. The aortic root angulation measures 54.0 degrees. The angle of delivery is ANDERSON 6 CAU 13. The minimal and perpendicular abdominal aortic diameter measure 15.2 and 17.1 mm, respectively. The mid ascending thoracic aorta measure 4.0 x 4.0 cm indicating mild ectasia. There is no evidence of thoracoabdominal aortic aneurysm or stent placement present. The minimum and the perpendicular left common iliac artery measures 8.7 and 10.4 mm, respectively with mild to moderate tortuosity and mild calcific atherosclerosis present. The minimum and the perpendicular left external iliac artery measures 8.1 and 8.1 mm, respectively with mild tortuosity and no calcific atherosclerosis present. The minimum and the perpendicular left femoral artery measures 8.2 and 8.6 mm, respectively with mild tortuosity and tiny focal calcific atherosclerosis present. The minimum and the perpendicular right common iliac artery measures 8.6 and 10.3 mm, respectively with mild tortuosity and mild calcific atherosclerosis present. The minimum and the perpendicular right external iliac artery measures 8.2 and 8.2 mm, respectively with moderate tortuosity and no calcific atherosclerosis present. The minimum and the perpendicular right femoral artery measures 8.6 and 8.6 mm, respectively with minimal tortuosity and mild focal calcific atherosclerosis present. NON-VASCULAR: The visualised thyroid gland appears unremarkable. The chest wall and mediastinum is unremarkable. No significant adenopathy is identified in the mediastinum. In the lung windows, no endobronchial lesion is seen, and no pleural effusions identified. Some atelectatic changes are seen. No suspicious pulmonary nodule is identified. In the abdomen, the liver and spleen appears unremarkable. The liver edge is smooth. No abnormal enhancing structure is identified. The gallbladder, pancreas and the adrenal glands appears unremarkable. No acute renal pathology is seen and no hydronephrosis or perirenal fluid collection is identified. A renal cyst is identified in the posterior aspect of the right kidney, measure 1.2 cm in diameter, image 396. Bowel is not well assessed by CT angiography as enteric contrast is not given. No obvious bowel dilation is identified. Scattered colonic diverticulum is present with no inflammatory changes present. Bilateral fat-containing inguinal hernia is identified. The prostate is prominent. The bladder is mildly dilated. No acute bony pathology is identified. Mild degenerative changes is noted. CONCLUSIONS: 1. Patient has a diagnosis of aortic stenosis. The aortic valve is tricuspid. Agatston score is approximately 2919. Aortic valve area is 72 sq mm. No obvious mitral annular calcification is identified. Mild ectasia is seen in the ascending thoracic aorta, scattered calcifications seen in the ascending thoracic aorta. Dimensions that may be helpful for TAVR as described above. 2. Normal coronary artery origins. Coronary artery calcification is seen in the LAD and RCA territory. 3. The central pulmonary artery is mildly prominent. No evidence of central pulmonary artery embolism. No acute pulmonary pathology is identified. 4. Other findings as described above. 5. An addendum will be dictated by the [employer] Tank Tender Radiologist regarding the nonvascular findings. Signed: Chemo Real MD Report Verified Date/Time: 07/04/2018 15:30:35 Reading Location: [facility] P047 Cardiology MRI Performing Organization Address City/State/Zipcode Phone Number [employer] RIS * POC-Creatinine (07/04/2018 12:05 PM WEB OPERATIONS MANAGER) POC-Creatinine 1.1Comment: TESTED AT [facility] 0.6 - 1.3 mg/dL [address] POC-EGFR 66 mL/min/1.73M2 [facility] Specimen Blood Performing Organization Address City/[facility] Phone Number [facility] [address] [place] [id number] [facility] after 09/30/2017 Insurance Payer Benefit Subscriber ID Type Phone Address Plan / [facility] MEDIC[facility] ADV Advance Directives Patient has advance care planning documents, and code status on file. For more i nformation, please contact: [address] [phone] Date Inactivated Comments Code Status Date Activated 09/20/2018 6:38 PM Full Code 09/19/2018 12:15 PM This code status was determined by: Patient 09/19/2018 12:15 PM Full Code 09/19/2018 6:03 AM This code status was determined by: Patient 09/19/2018 5:13 AM Full Code 07/25/2018 8:46 AM This code status was determined by: Patient
[2018-10-01 19:43] VITALS: BP 160/71
== END 2018-10-01 19:57 | disposition home or self-care (01) ==
LOC: ER 17:48
DX: L03.314 Cellulitis of groin (principal); I10 Essential (primary) hypertension; E11.9 Type 2 diabetes mellitus without complications; E78.5 Hyperlipidemia, unspecified; I25.10 Atherosclerotic heart disease of native coronary artery without angina pectoris
CPT/HCPCS: 99283

== ENCOUNTER 2022-11-24 16:21 | Inpatient (IN) | payer MEDICARE ==
[~2022-11-24] VITALS: Ht 185.4 cm; Wt 116.6 kg
[2022-11-24] MEDS ORDERED: KETOROLAC TROMETHAMINE 30 MG/ML VIAL IV STA (16:40)
[2022-11-24] MEDS ORDERED: LACTATED RINGER'S 1,000 ML INJ SCH (16:45)
[2022-11-24 16:52] LABS: BASOPHILS % 0.4 % (0.0-1.0); EOSINOPHILS # (AUTO) 0.1 (0.0-0.4); EOSINOPHILS % 1.1 % (0.0-6.0); HEMATOCRIT 38.2 % (38.2-49.6); HEMOGLOBIN 13.3 g/dL (14.0-18.0); LYMPHOCYTES # (AUTO) 0.6 (1.0-3.2); MEAN CORPUSCULAR HEMOGLOBIN 31.2 pg (28-32); MEAN CORPUSCULAR HGB CONC 34.8 g/dL (31-35); MEAN CORPUSCULAR VOLUME 89.7 fL (81-99); MONOCYTES # (AUTO) 0.9 (0.2-0.8); MONOCYTES % 15.3 % (4.4-11.3); NEUTROPHILS % 71.8 % (38.7-80.0); PLATELET COUNT 117 x10e3/uL (140-360); RED BLOOD COUNT 4.26 x10e6/uL (4.3-5.7)
[2022-11-24 17:05] LABS: ALANINE AMINOTRANSFERASE 30 IU/L (0-55); ALBUMIN 3.8 g/dL (3.5-5.0); ALBUMIN/GLOBULIN RATIO 1.4 (0.8-2.0); ALKALINE PHOSPHATASE 46 IU/L (40-150); ANION GAP 17.1 mmol/L (8-16); BLOOD UREA NITROGEN 17 mg/dL (7-26); BUN/CREATININE RATIO 13 (6-25); CALCIUM 9.2 mg/dL (8.4-10.2); CARBON DIOXIDE 22 mmol/L (22-29); CHLORIDE 103 mmol/L (98-107); CREATINE KINASE 74 IU/L (30-200); CREATININE, SERUM 1.28 mg/dL (0.72-1.25); GLUCOSE 229 mg/dL (74-118); POTASSIUM 4.1 mmol/L (3.5-5.1); SODIUM 138 mmol/L (136-145)
[2022-11-24] MEDS ORDERED: MECLIZINE HCL 12.5 MG TAB PO ONE (17:15)
[2022-11-24] MEDS ORDERED: IOPAMIDOL 370 MG/ML 100 ML INFUS..BTL INJ ONE (17:19)
[2022-11-24 19:05] LABS: CLARITY,URINE CLEAR (CLEAR); COLOR,URINE YELLOW (YELLOW); KETONES,URINE 1+ (NEGATIVE); LEUKOCYTE ESTERASE ,URINE NEGATIVE (NEGATIVE); NITRITE,URINE NEGATIVE (NEGATIVE); PROTEIN,URINE DIPSTICK 2+ (NEGATIVE); URINE UROBILINOGEN 0.2 mg/dL (0.2 - 1)
[2022-11-24 19:13] LABS: RBC,URINE 0-5 /HPF (0-5); WBC,URINE (MAN) 0-5 /HPF (0-5)
[2022-11-24] MEDS ORDERED: METOCLOPRAMIDE HCL 10 MG/2ML VIAL IV ONE (19:30)
[2022-11-24] MEDS ORDERED: SODIUM CHLORIDE FLUSH 10 ML SYR INJ PRN (19:30)
[2022-11-24] MEDS ORDERED: ONDANSETRON HCL INJ 2MG/ML 2ML 2 MG/ML VIAL IV PRN (19:30)
[2022-11-24] MEDS ORDERED: METOCLOPRAMIDE HCL 10 MG/2ML VIAL ONE (19:50)
[2022-11-24] MEDS ORDERED: DEXTROSE 50% SYRINGE 50 ML IV PRN (20:30)
[2022-11-24] MEDS ORDERED: ACETAMINOPHEN 325 MG TAB PO PRN (20:30)
[2022-11-24] MEDS ORDERED: HYDROCODONE/APAP 5MG-325MG TAB PO PRN (20:30)
[2022-11-24] MEDS ORDERED: AZITHROMYCIN 250 MG TAB PO SCH (20:30)
[2022-11-24] MEDS: DOXAZOSIN MESYLATE 2 MG TAB PO SCH (21:00)
[2022-11-24] MEDS: INSULIN REGULAR, HUMAN 100 UNIT/1 ML SQ SCH (21:00)
[2022-11-24] MEDS ORDERED: ALBUTEROL/IPRATROPIUM 3 ML NEB ONE (21:32)
[2022-11-24 21:35] VITALS: PULSE 94; RESP 32; O2SAT 96
[2022-11-24] MEDS ORDERED: NITROGLYCERIN 2% OINT 1 GM PKT ONE (21:38)
[2022-11-24] MEDS ORDERED: ALBUTEROL/IPRATROPIUM 3 ML NEB NEB ONE (21:45)
[2022-11-24] MEDS ORDERED: SODIUM CHLORIDE 0.9% 1000ML 1,000 ML IV ONE (21:45)
[2022-11-24] MEDS ORDERED: NITROGLYCERIN 2% OINT 1 GM PKT TOP ONE (21:45)
[2022-11-24] MEDS: SIMVASTATIN 40 MG TAB PO SCH (21:56)
[2022-11-24] MEDS ORDERED: ALBUTEROL SULF 0.083% NEB SOLN 3 ML NEB NEB ONE (22:00)
[2022-11-24] MEDS ORDERED: IPRATROPIUM BROMIDE 0.02% 2.5 ML NEB NEB ONE (22:00)
[2022-11-24] MEDS ORDERED: CEFTRIAXONE 1 GM VIAL IV ONE (22:15)
[2022-11-24] MEDS ORDERED: MAGNESIUM/ALUMINUM/SIMETHICONE 30 ML UDC PO PRN (23:15)
[2022-11-24] MEDS ORDERED: HYDRALAZINE HCL 20 MG/ML VIAL IV PRN (23:15)
[2022-11-24] MEDS ORDERED: BISACODYL 10 MG SUPP PR PRN (23:15)
[2022-11-24] MEDS ORDERED: MELATONIN 3 MG TAB PO PRN (23:15)
[2022-11-25] VITALS (29 sets, daily range): BP systolic 99–154; BP diastolic 51–119; PULSE 71–118; RESP 16–42; TEMP 98–100.8; O2SAT 85–100
[2022-11-25] MEDS: INSULIN REGULAR, HUMAN 100 UNIT/1 ML SQ SCH ×4 (00:05→21:00)
[2022-11-25] MEDS: ALBUTEROL SULF 0.083% NEB SOLN 3 ML NEB NEB PRN ×2 (01:00→07:31)
[2022-11-25] MEDS: IPRATROPIUM BROMIDE 0.02% 2.5 ML NEB NEB SCH ×2 (01:00→07:31)
[2022-11-25] MEDS ORDERED: LACTATED RINGER'S 1,000 ML INJ SCH (01:26)
[2022-11-25 06:00] LABS: BASOPHILS % 0.1 % (0.0-1.0); HEMATOCRIT 34.3 % (38.2-49.6); HEMOGLOBIN 11.6 g/dL (14.0-18.0); LYMPHOCYTES % 13.5 % (18.0-39.1); MEAN CORPUSCULAR HGB CONC 33.8 g/dL (31-35); MEAN CORPUSCULAR VOLUME 91.7 fL (81-99); MONOCYTES % 13.7 % (4.4-11.3); NEUTROPHILS # (AUTO) 5.1 (2.1-6.9); NEUTROPHILS % 72.1 % (38.7-80.0); PLATELET COUNT 101 x10e3/uL (140-360); RED BLOOD COUNT 3.74 x10e6/uL (4.3-5.7); RED CELL DISTRIBUTION WIDTH 14.3 % (11.7-14.4)
[2022-11-25 06:43] LABS: ALBUMIN 3.4 g/dL (3.5-5.0); ALBUMIN/GLOBULIN RATIO 1.2 (0.8-2.0); ANION GAP 13.6 mmol/L (8-16); CALCIUM 9.2 mg/dL (8.4-10.2); CREATININE, SERUM 1.22 mg/dL (0.72-1.25); POTASSIUM 4.6 mmol/L (3.5-5.1)
[2022-11-25] MEDS ORDERED: GLIMEPIRIDE 2 MG TAB PO SCH (09:00)
[2022-11-25] MEDS: ASPIRIN 81 MG CHEW TAB PO SCH (09:00)
[2022-11-25] MEDS: ATENOLOL 50 MG TAB PO SCH ×2 (09:00→17:00)
[2022-11-25] MEDS: CLOPIDOGREL BISULFATE 75 MG TAB PO SCH (09:00)
[2022-11-25] MEDS: LORATADINE 10 MG TAB PO SCH (09:00)
[2022-11-25] MEDS: ALLOPURINOL 300 MG TAB PO SCH (09:00)
[2022-11-25] MEDS: MULTIVITAMINS/MINERALS TAB PO SCH (09:00)
[2022-11-25] MEDS: FLUOXETINE HCL 20 MG CAP PO SCH ×2 (09:00→17:00)
[2022-11-25] MEDS: DOCUSATE SODIUM 100 MG CAP PO SCH ×2 (09:00→17:00)
[2022-11-25] MEDS ORDERED: LORATADINE 10 MG TAB PO SCH (09:00)
[2022-11-25] MEDS ORDERED: CHLORASEPTIC SPRAY 177 ML BTL MM PRN (09:45)
[2022-11-25] MEDS ORDERED: LEVALBUTEROL HCL SOLN NEBU 0.63 MG/3 ML NEB INH ONE (16:30)
[2022-11-25] MEDS ORDERED: DEXAMETHASONE SOD PHOS 10 MG/1 ML VIAL IV ONE (16:30)
[2022-11-25] MEDS ORDERED: LORAZEPAM INJ 2 MG/ML VIAL IV ONE (16:30)
[2022-11-25] MEDS ORDERED: EPINEPHRINE 2.25% INH NEBU SOL 0.5 ML VIAL ONE (16:35)
[2022-11-25] MEDS ORDERED: FUROSEMIDE INJ 10 MG/ML 4 ML VIAL IV ONE (16:45)
[2022-11-25] MEDS: GLIMEPIRIDE 2 MG TAB PO SCH (17:00)
[2022-11-25] MEDS ORDERED: ZOLPIDEM TARTRATE 5 MG TAB PO PRN (17:15)
[2022-11-25] MEDS ORDERED: LORAZEPAM 0.5 MG TAB PO PRN (17:15)
[2022-11-25] MEDS ORDERED: ZIPRASIDONE 20 MG VIAL IM STA (17:31)
[2022-11-25] MEDS ORDERED: INSULIN GLARGINE 100 UNITS/ML VIAL SQ SCH (18:00)
[2022-11-25] MEDS ORDERED: DEXMEDETOMIDINE 400MCG/NS100ML 100 ML IV PRN (19:15)
[2022-11-25] MEDS: LEVALBUTEROL HCL SOLN NEBU 0.63 MG/3 ML NEB INH PRN (19:21)
[2022-11-25] MEDS: IPRATROPIUM BROMIDE 0.02% 2.5 ML NEB NEB PRN (19:21)
[2022-11-25] MEDS: SIMVASTATIN 40 MG TAB PO SCH (21:00)
[2022-11-25] MEDS: DOXAZOSIN MESYLATE 2 MG TAB PO SCH (21:00)
[2022-11-26] VITALS (58 sets, daily range): BP systolic 113–159; BP diastolic 54–103; PULSE 50–83; RESP 12–32; TEMP 97.5–98.2; O2SAT 97–100
[2022-11-26] MEDS: IPRATROPIUM BROMIDE 0.02% 2.5 ML NEB NEB PRN ×3 (01:51→19:35)
[2022-11-26] MEDS: LEVALBUTEROL HCL SOLN NEBU 0.63 MG/3 ML NEB INH PRN ×2 (01:51→06:29)
[2022-11-26 02:51] LABS: % IRON SATURATION 7 % (15-50); IRON 19 ug/dL (65-175); TOTAL IRON BINDING CAPACITY 284 ug/dL (261-478); TRANSFERRIN 203 mg/dL (174-364)
[2022-11-26 07:22] LABS: HEMATOCRIT 34.4 % (38.2-49.6); HEMOGLOBIN 11.7 g/dL (14.0-18.0); LYMPHOCYTES # (AUTO) 0.5 (1.0-3.2); LYMPHOCYTES % 9.3 % (18.0-39.1); MEAN CORPUSCULAR HEMOGLOBIN 31.3 pg (28-32); MONOCYTES # (AUTO) 0.6 (0.2-0.8); MONOCYTES % 12.2 % (4.4-11.3); NEUTROPHILS # (AUTO) 4.1 (2.1-6.9); NEUTROPHILS % 78.1 % (38.7-80.0); PLATELET COUNT 103 x10e3/uL (140-360); RED BLOOD COUNT 3.74 x10e6/uL (4.3-5.7); RED CELL DISTRIBUTION WIDTH 13.8 % (11.7-14.4)
[2022-11-26] MEDS: INSULIN REGULAR, HUMAN 100 UNIT/1 ML SQ SCH ×4 (07:30→20:20)
[2022-11-26 07:51] LABS: ANION GAP 13.1 mmol/L (8-16); CALCIUM 8.9 mg/dL (8.4-10.2); CREATININE, SERUM 0.99 mg/dL (0.72-1.25); POTASSIUM 4.1 mmol/L (3.5-5.1)
[2022-11-26] MEDS: GLIMEPIRIDE 2 MG TAB PO SCH ×2 (08:00→17:13)
[2022-11-26] MEDS: MULTIVITAMINS/MINERALS TAB PO SCH (13:13)
[2022-11-26] MEDS: ASPIRIN 81 MG CHEW TAB PO SCH (13:13)
[2022-11-26] MEDS: DOCUSATE SODIUM 100 MG CAP PO SCH ×2 (13:13→17:13)
[2022-11-26] MEDS: LORATADINE 10 MG TAB PO SCH (13:13)
[2022-11-26] MEDS: CLOPIDOGREL BISULFATE 75 MG TAB PO SCH (13:14)
[2022-11-26] MEDS: ATENOLOL 50 MG TAB PO SCH ×2 (13:14→17:14)
[2022-11-26] MEDS: FLUOXETINE HCL 20 MG CAP PO SCH ×2 (13:14→17:13)
[2022-11-26] MEDS: ALLOPURINOL 300 MG TAB PO SCH (13:15)
[2022-11-26] MEDS ORDERED: FUROSEMIDE INJ 10 MG/ML 4 ML VIAL IV ONE (16:30)
[2022-11-26] MEDS: SIMVASTATIN 40 MG TAB PO SCH (20:23)
[2022-11-26] MEDS: DOXAZOSIN MESYLATE 2 MG TAB PO SCH (20:23)
[2022-11-27] VITALS (10 sets, daily range): BP systolic 92–162; BP diastolic 43–81; PULSE 57–81; RESP 18–30; TEMP 97.4–98.1; O2SAT 96–100
[2022-11-27] MEDS: GUAIFENESIN/DEXTROMETHORPHAN LIQD 5 ML UDC PO PRN ×3 (01:35→23:54)
[2022-11-27 06:52] LABS: BASOPHILS % 0.2 % (0.0-1.0); EOSINOPHILS # (AUTO) 0.3 (0.0-0.4); EOSINOPHILS % 5.9 % (0.0-6.0); HEMATOCRIT 39.4 % (38.2-49.6); HEMOGLOBIN 12.9 g/dL (14.0-18.0); LYMPHOCYTES # (AUTO) 0.7 (1.0-3.2); LYMPHOCYTES % 15.4 % (18.0-39.1); MEAN CORPUSCULAR HEMOGLOBIN 30.8 pg (28-32); MEAN CORPUSCULAR HGB CONC 32.7 g/dL (31-35); MONOCYTES # (AUTO) 0.4 (0.2-0.8); MONOCYTES % 9.7 % (4.4-11.3); NEUTROPHILS # (AUTO) 2.9 (2.1-6.9); NEUTROPHILS % 68.6 % (38.7-80.0); PLATELET COUNT 114 x10e3/uL (140-360); RED BLOOD COUNT 4.19 x10e6/uL (4.3-5.7); RED CELL DISTRIBUTION WIDTH 13.9 % (11.7-14.4)
[2022-11-27 07:21] LABS: ALBUMIN/GLOBULIN RATIO 0.9 (0.8-2.0); ANION GAP 12.7 mmol/L (8-16); CALCIUM 9.1 mg/dL (8.4-10.2); CREATININE, SERUM 1.05 mg/dL (0.72-1.25); POTASSIUM 3.7 mmol/L (3.5-5.1)
[2022-11-27] MEDS: GLIMEPIRIDE 2 MG TAB PO SCH ×2 (08:11→16:24)
[2022-11-27] MEDS: CYANOCOBALAMIN INJ 1,000 MCG/ML VIAL IM SCH (08:11)
[2022-11-27] MEDS: DOCUSATE SODIUM 100 MG CAP PO SCH ×2 (08:12→16:24)
[2022-11-27] MEDS: ALLOPURINOL 300 MG TAB PO SCH (08:12)
[2022-11-27] MEDS: MULTIVITAMINS/MINERALS TAB PO SCH (08:12)
[2022-11-27] MEDS: FLUOXETINE HCL 20 MG CAP PO SCH ×2 (08:12→16:24)
[2022-11-27] MEDS: IRON SUCROSE 100 MG in SODIUM CHLORIDE 0.9% 100 ML IV SCH (08:12)
[2022-11-27] MEDS: CLOPIDOGREL BISULFATE 75 MG TAB PO SCH (08:12)
[2022-11-27] MEDS: LORATADINE 10 MG TAB PO SCH (08:13)
[2022-11-27] MEDS: ASPIRIN 81 MG CHEW TAB PO SCH (08:13)
[2022-11-27] MEDS: ATENOLOL 50 MG TAB PO SCH ×2 (08:14→16:25)
[2022-11-27] MEDS: INSULIN REGULAR, HUMAN 100 UNIT/1 ML SQ SCH ×4 (08:15→20:57)
[2022-11-27] MEDS: LOSARTAN POTASSIUM 100 MG TAB PO SCH (09:00)
[2022-11-27] MEDS ORDERED: FUROSEMIDE INJ 10 MG/ML 2 ML VIAL IV ONE (16:15)
[2022-11-27] MEDS: DOXAZOSIN MESYLATE 2 MG TAB PO SCH (20:42)
[2022-11-27] MEDS: SIMVASTATIN 40 MG TAB PO SCH (20:42)
[2022-11-27] MEDS ORDERED: SODIUM CHLORIDE 0.9% 250ML 250 ML ONE (23:35)
[2022-11-28] VITALS (11 sets, daily range): BP systolic 96–169; BP diastolic 57–95; PULSE 57–85; RESP 16–24; TEMP 97.3–98.3; O2SAT 97–100
[2022-11-28 05:56] LABS: BASOPHILS % 0.3 % (0.0-1.0); EOSINOPHILS # (AUTO) 0.3 (0.0-0.4); EOSINOPHILS % 8.4 % (0.0-6.0); HEMOGLOBIN 12.6 g/dL (14.0-18.0); LYMPHOCYTES # (AUTO) 0.9 (1.0-3.2); LYMPHOCYTES % 24.4 % (18.0-39.1); MEAN CORPUSCULAR HEMOGLOBIN 30.8 pg (28-32); MEAN CORPUSCULAR HGB CONC 34.1 g/dL (31-35); MEAN CORPUSCULAR VOLUME 90.5 fL (81-99); MONOCYTES # (AUTO) 0.4 (0.2-0.8); MONOCYTES % 11.2 % (4.4-11.3); NEUTROPHILS % 55.1 % (38.7-80.0); PLATELET COUNT 131 x10e3/uL (140-360); RED BLOOD COUNT 4.09 x10e6/uL (4.3-5.7); RED CELL DISTRIBUTION WIDTH 13.5 % (11.7-14.4)
[2022-11-28 06:32] LABS: ALBUMIN 2.8 g/dL (3.5-5.0); ALBUMIN/GLOBULIN RATIO 1.1 (0.8-2.0); ANION GAP 11.6 mmol/L (8-16); CALCIUM 9.1 mg/dL (8.4-10.2); CREATININE, SERUM 1.04 mg/dL (0.72-1.25); POTASSIUM 3.6 mmol/L (3.5-5.1)
[2022-11-28] MEDS: INSULIN REGULAR, HUMAN 100 UNIT/1 ML SQ SCH ×4 (08:18→21:13)
[2022-11-28] MEDS: ATENOLOL 50 MG TAB PO SCH ×2 (08:25→18:18)
[2022-11-28] MEDS: GLIMEPIRIDE 2 MG TAB PO SCH ×2 (08:25→18:17)
[2022-11-28] MEDS: CLOPIDOGREL BISULFATE 75 MG TAB PO SCH (08:26)
[2022-11-28] MEDS: FLUOXETINE HCL 20 MG CAP PO SCH ×2 (08:26→18:17)
[2022-11-28] MEDS: LOSARTAN POTASSIUM 100 MG TAB PO SCH (08:26)
[2022-11-28] MEDS: MULTIVITAMINS/MINERALS TAB PO SCH (08:26)
[2022-11-28] MEDS: ALLOPURINOL 300 MG TAB PO SCH (08:26)
[2022-11-28] MEDS: ASPIRIN 81 MG CHEW TAB PO SCH (08:27)
[2022-11-28] MEDS: DOCUSATE SODIUM 100 MG CAP PO SCH ×2 (08:27→18:17)
[2022-11-28] MEDS: LORATADINE 10 MG TAB PO SCH (08:27)
[2022-11-28] MEDS: CYANOCOBALAMIN INJ 1,000 MCG/ML VIAL IM SCH (08:35)
[2022-11-28] MEDS: IRON SUCROSE 100 MG in SODIUM CHLORIDE 0.9% 100 ML IV SCH (11:03)
[2022-11-28 11:34] LABS: EOSINOPHILS % (MANUAL) 9 % (0-7); LYMPHOCYTES % (MANUAL) 26 % (19-48); MONOCYTES % (MANUAL) 5 % (3.4-9.0); NEUTROPHILS % (MANUAL) 57 % (40-74); PLATELET ESTIMATE ADEQUATE; PLATELET MORPHOLOGY COMMENT FEW LARGE; RBC MORPHOLOGY COMMENT NORMAL
[2022-11-28] MEDS: TRIAMCINOLONE ACET 0.1% CREAM 15 GM TUBE TOP SCH (18:24)
[2022-11-28] MEDS: GUAIFENESIN/DEXTROMETHORPHAN LIQD 5 ML UDC PO PRN (18:24)
[2022-11-28] MEDS: DOXAZOSIN MESYLATE 2 MG TAB PO SCH (21:06)
[2022-11-28] MEDS: SIMVASTATIN 40 MG TAB PO SCH (21:06)
[2022-11-29] VITALS (11 sets, daily range): BP systolic 132–163; BP diastolic 68–82; PULSE 56–70; RESP 18–20; TEMP 97.1–98; O2SAT 94–100
[2022-11-29] MEDS: DOCUSATE SODIUM 100 MG CAP PO SCH ×2 (09:00→16:48)
[2022-11-29] MEDS: GUAIFENESIN/DEXTROMETHORPHAN LIQD 5 ML UDC PO PRN ×3 (09:33→21:05)
[2022-11-29] MEDS: IRON SUCROSE 100 MG in SODIUM CHLORIDE 0.9% 100 ML IV SCH (09:33)
[2022-11-29] MEDS: ALLOPURINOL 300 MG TAB PO SCH (09:34)
[2022-11-29] MEDS: LORATADINE 10 MG TAB PO SCH (09:34)
[2022-11-29] MEDS: MULTIVITAMINS/MINERALS TAB PO SCH (09:34)
[2022-11-29] MEDS: GLIMEPIRIDE 2 MG TAB PO SCH ×2 (09:34→16:46)
[2022-11-29] MEDS: CLOPIDOGREL BISULFATE 75 MG TAB PO SCH (09:35)
[2022-11-29] MEDS: FLUOXETINE HCL 20 MG CAP PO SCH ×2 (09:35→16:46)
[2022-11-29] MEDS: LOSARTAN POTASSIUM 100 MG TAB PO SCH (09:35)
[2022-11-29] MEDS: ASPIRIN 81 MG CHEW TAB PO SCH (09:35)
[2022-11-29] MEDS: ATENOLOL 50 MG TAB PO SCH ×2 (09:36→16:46)
[2022-11-29] MEDS: CYANOCOBALAMIN INJ 1,000 MCG/ML VIAL IM SCH (09:36)
[2022-11-29] MEDS: TRIAMCINOLONE ACET 0.1% CREAM 15 GM TUBE TOP SCH ×2 (09:38→16:47)
[2022-11-29] MEDS: INSULIN REGULAR, HUMAN 100 UNIT/1 ML SQ SCH ×4 (09:41→21:35)
[2022-11-29] MEDS ORDERED: SOLIQUA 100 UNIT3 ML SC (16:59)
[2022-11-29] MEDS ORDERED: MULTI-VITAMIN1 EACH PO (17:00)
[2022-11-29] MEDS ORDERED: VITAMIN D3 PO (17:00)
[2022-11-29] MEDS ORDERED: FISH OIL PO (17:00)
[2022-11-29] MEDS: LEVALBUTEROL HCL SOLN NEBU 0.63 MG/3 ML NEB INH PRN (20:50)
[2022-11-29] MEDS: IPRATROPIUM BROMIDE 0.02% 2.5 ML NEB NEB PRN (20:50)
[2022-11-29] MEDS: SIMVASTATIN 40 MG TAB PO SCH (21:03)
[2022-11-29] MEDS: DOXAZOSIN MESYLATE 2 MG TAB PO SCH (21:05)
[2022-11-30] VITALS (7 sets, daily range): BP systolic 133–145; BP diastolic 67–83; PULSE 52–66; RESP 17–21; TEMP 97.5–98.1; O2SAT 96–100
[2022-11-30 05:21] LABS: BASOPHILS % 0.9 % (0.0-1.0); EOSINOPHILS # (AUTO) 0.3 (0.0-0.4); EOSINOPHILS % 8.3 % (0.0-6.0); HEMATOCRIT 35.3 % (38.2-49.6); HEMOGLOBIN 11.8 g/dL (14.0-18.0); LYMPHOCYTES % 27.7 % (18.0-39.1); MEAN CORPUSCULAR HEMOGLOBIN 30.9 pg (28-32); MEAN CORPUSCULAR HGB CONC 33.4 g/dL (31-35); MEAN CORPUSCULAR VOLUME 92.4 fL (81-99); MONOCYTES # (AUTO) 0.4 (0.2-0.8); NEUTROPHILS # (AUTO) 1.7 (2.1-6.9); NEUTROPHILS % 48.2 % (38.7-80.0); PLATELET COUNT 138 x10e3/uL (140-360); RED BLOOD COUNT 3.82 x10e6/uL (4.3-5.7); RED CELL DISTRIBUTION WIDTH 13.3 % (11.7-14.4)
[2022-11-30 05:51] LABS: ANION GAP 12.5 mmol/L (8-16); CALCIUM 8.7 mg/dL (8.4-10.2); CREATININE, SERUM 0.97 mg/dL (0.72-1.25); POTASSIUM 3.5 mmol/L (3.5-5.1)
[2022-11-30] MEDS: LEVALBUTEROL HCL SOLN NEBU 0.63 MG/3 ML NEB INH PRN (06:40)
[2022-11-30] MEDS ORDERED: ONDANSETRON HCL 4 MG ORAL DISINTEGRATING TAB PO PRN (07:45)
[2022-11-30] MEDS: CYANOCOBALAMIN INJ 1,000 MCG/ML VIAL IM SCH (08:22)
[2022-11-30] MEDS: ASPIRIN 81 MG CHEW TAB PO SCH (08:23)
[2022-11-30] MEDS: ALLOPURINOL 300 MG TAB PO SCH (08:23)
[2022-11-30] MEDS: LORATADINE 10 MG TAB PO SCH (08:23)
[2022-11-30] MEDS: GUAIFENESIN/DEXTROMETHORPHAN LIQD 5 ML UDC PO PRN (08:23)
[2022-11-30] MEDS: MULTIVITAMINS/MINERALS TAB PO SCH (08:23)
[2022-11-30] MEDS: FLUOXETINE HCL 20 MG CAP PO SCH (08:23)
[2022-11-30] MEDS: CLOPIDOGREL BISULFATE 75 MG TAB PO SCH (08:24)
[2022-11-30] MEDS: ATENOLOL 50 MG TAB PO SCH (08:24)
[2022-11-30] MEDS: LOSARTAN POTASSIUM 100 MG TAB PO SCH (08:24)
[2022-11-30] MEDS: GLIMEPIRIDE 2 MG TAB PO SCH (08:25)
[2022-11-30] MEDS: DOCUSATE SODIUM 100 MG CAP PO SCH (08:25)
[2022-11-30] MEDS: TRIAMCINOLONE ACET 0.1% CREAM 15 GM TUBE TOP SCH (08:26)
[2022-11-30] MEDS: INSULIN REGULAR, HUMAN 100 UNIT/1 ML SQ SCH ×2 (08:29→12:29)
[2022-11-30] MEDS ORDERED: SODIUM CHLORIDE 0.9% 250ML 250 ML ONE (08:49)
[2022-11-30] MEDS: IRON SUCROSE 100 MG in SODIUM CHLORIDE 0.9% 100 ML IV SCH (09:40)
[2022-11-30] MEDS ORDERED: PROVENTIL HFA6.7 GM INH (12:13)
[2022-11-30] MEDS ORDERED: DOXYCYCLINE HY100 MG PO (12:14)
[2022-11-30] MEDS ORDERED: PANTOPRAZOLE SOD 40 MG TABEC PO SCH (16:30)
[2022-11-30] MEDS ORDERED: AZITHROMYCIN 250 MG TAB PO SCH (17:00)
== END 2022-11-30 13:44 | disposition home or self-care (01) | DRG 871 ==
LOC: ER 16:28 → ERHOLD 19:30 → ICU 11-25 07:56 → OBSVTOIN 11-25 08:59 → MED/SURG3 11-27 18:32
PROVIDERS: ADMIT Internal Medicine; ATTEND Internal Medicine
PROC: 5A09357 Assistance with Respiratory Ventilation, Less than 24 Consecutive Hours, Continuous Positive Airway Pressure (ICD-10-PCS; principal; 2022-11-24)
DX: A41.9 Sepsis, unspecified organism (principal); I50.33 Acute on chronic diastolic (congestive) heart failure; J18.9 Pneumonia, unspecified organism; I13.0 Hypertensive heart and chronic kidney disease with heart failure and stage 1 through stage 4 chronic kidney disease, or unspecified chronic kidney disease; Q25.1 Coarctation of aorta; M10.9 Gout, unspecified; H91.90 Unspecified hearing loss, unspecified ear; I25.10 Atherosclerotic heart disease of native coronary artery without angina pectoris; K42.9 Umbilical hernia without obstruction or gangrene; E66.01 Morbid (severe) obesity due to excess calories; G47.33 Obstructive sleep apnea (adult) (pediatric); E11.22 Type 2 diabetes mellitus with diabetic chronic kidney disease; N18.30 Chronic kidney disease, stage 3 unspecified; N40.0 Benign prostatic hyperplasia without lower urinary tract symptoms; Z68.35 Body mass index [BMI] 35.0-35.9, adult; D50.9 Iron deficiency anemia, unspecified; R09.02 Hypoxemia; E78.00 Pure hypercholesterolemia, unspecified; D69.6 Thrombocytopenia, unspecified; Z20.822 Contact with and (suspected) exposure to COVID-19; Z79.4 Long term (current) use of insulin; Z79.84 Long term (current) use of oral hypoglycemic drugs; Z95.5 Presence of coronary angioplasty implant and graft; Z79.02 Long term (current) use of antithrombotics/antiplatelets; Z79.82 Long term (current) use of aspirin; Z87.891 Personal history of nicotine dependence; Z95.2 Presence of prosthetic heart valve
CPT/HCPCS: 0223U; 36415; 70450; 71045; 71250; 74177; 74230; 80048; 80053; 81001; 82550; 82607; 82746; 82948; 83540; 83880; 84466; 84484; 85025; 85045; 87040; 87086; 87400; 93005; 93306; 94640; 94660; 94799; 96360; 96372; 99284; G0378; J0696; J1100; J1756; J1815; J1885; J1940; J2060; J2543; J2765; J3420; J3486; J7030; J7050; Q9967